=== PATIENT | female | born 1995 | race Caucasian/White ===

== ENCOUNTER 2018-08-04 11:07 | Emergency (ER) | payer OTHER ==
[2018-08-04 11:17] VITALS: BP 119/74
--- NOTE | 2018-08-04 12:23 | ED Physician Documentation ---
PD HPI HEENT - Stated complaint Stated Complaint: SORE THROAT - Chief complaint Chief Complaint: Heent - History obtained from History obtained from: Patient - History of Present Illness Timing - onset: How many days ago (5 days ill, worse the past day or so) Timing - duration: Days Timing - details: Gradual onset, Still present (worse the past day) Location: Sinuses, Throat Associated symptoms: Congestion, Cough, Other (sore throat). No: Fever, Swollen nodes Recently seen: Not recently seen Review of Systems Constitutional: reports: Myalgias, Fatigue. denies: Fever, Chills Nose: reports: Rhinorrhea / runny nose, Congestion Throat: reports: Sore throat. denies: Swollen tonsils Respiratory: reports: Cough. 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 : None HEENT: None Psych: None Musculoskeletal: None Derm: None - Past Surgical History Past Surgical History: No - Present Medications Home Medications: Ambulatory Orders Medication Instructions Recorded Confirmed Benzonatate [Tessalon Perle] 100 - 200 mg PO TID PRN #30 capsule 08/04/18 Dexamethasone [Decadron] 4 mg PO DAILY #5 tablet 08/04/18 Naproxen 375 mg PO BID #20 tablet 08/04/18 - Allergies Allergies/Adverse Reactions: Allergies Allergy/AdvReac Type Severity Reaction Status Date / Time No Known Drug Allergies Allergy Verified 08/04/18 11:16 - Social History Does the pt smoke?: No Smoking Status: Never smoker Does the pt drink ETOH?: No Does the pt have substance abuse?: No - Immunizations Immunizations are current?: Yes - POLST Patient has POLST: No PD ED PE NORMAL - Vitals Vital signs reviewed: Yes - General General: Alert and oriented X 3, Well developed/nourished - HEENT HEENT: Ears normal, Moist mucous membranes. No: Pharynx benign (some redness and swelling of tonsils, but only moderate and no real exudate. Minimal anterior adenopathy. ) - Neck Neck: Supple, no meningeal sign - Cardiac Cardiac: RRR, No murmur - Respiratory Respiratory: Clear bilaterally - Abdomen Abdomen: Soft, Non tender - Derm Derm: Normal color, Warm and dry, No rash - Neuro Neuro: Alert and oriented X 3, No motor deficit, Normal speech Results - Vitals Vitals: Oxygen O2 Source Room air - Labs Labs: Microbiology 08/04/18 11:17 Group A Strep Throat Culture - Final Throat Beta Hemolytic Strep Group A Laboratory Tests 08/04/18 11:17 Group A Strep Rapid Negative PD MEDICAL DECISION MAKING - ED course Complexity details: reviewed results (negative strep test), considered differential, d/w patient Departure - Departure Disposition: Home, Self Care Clinical Impression: Upper respiratory infection Qualifiers: URI type: croup Qualified Code(s): J05.0 - Acute obstructive laryngitis [croup] Condition: Stable Record reviewed to determine appropriate education?: Yes Instructions: ED Upper Resp Infec No Abx Tx Follow-Up: [facility] [Provider Group] Prescriptions: Benzonatate [Tessalon Perle] 100 - 200 mg PO TID PRN #30 capsule PRN Reason: Cough Dexamethasone [Decadron] 4 mg PO DAILY #5 tablet Naproxen 375 mg PO BID #20 tablet Comments: Rest today and tomorrow. Drink lots of fluids. Naproxen twice daily for the next 7-10 days. Add Tylenol if needed for fevers or pains. Decadron steroid will help with the inflammation through the throat and airway Eve coughing and less hurting. Tessalon if needed for cough. Recheck if not improving well over the next few days. Forms: Activity restrictions Discharge Date/Time: 08/04/18 12:57
[2018-08-04] MEDS ORDERED: DEXAMETHASONE 10 MG/ML VIAL PO STA (12:37)
[2018-08-04] MEDS ORDERED: NAPROXEN 250 MG TABLET PO STA (12:37)
[2018-08-04] MEDS ORDERED: BENZONATATE 100 MG CAPSULE PO STA (12:37)
[2018-08-04] MEDS ORDERED: CHERRY SYRUP 10 ML UDC PO ONE (12:49)
== END 2018-08-04 12:57 | disposition home or self-care (01) ==
LOC: ED 11:07
DX: J05.0 Acute obstructive laryngitis [croup] (principal)
CPT/HCPCS: 87070; 87430; 99283; A9270

== ENCOUNTER 2019-03-08 07:54 | Emergency (ER) | payer OTHER ==
[2019-03-08 08:02] VITALS: BP 127/63
--- NOTE | 2019-03-08 08:18 | ED Physician Documentation ---
PD HPI NVD - Stated complaint Stated Complaint: N/V/D - Chief complaint Chief Complaint: Abd Pain - History obtained from History obtained from: Patient - History of Present Illness Timing - onset: Last night Timing - duration: Days (/) Timing - details: Abrupt onset, Still present Associated symptoms: Abdominal pain (just muscular when vomiting; no consistent pains), Loss of appetite (The patient started with nausea and vomiting last night after dinner and this continued through the night. He has tapered a little bit into this morning. She has had some diarrhea as well. She has muscular abdominal pain with vomiting but no ongoing abdominal pain. She wanted to rest at home today and went to [facility] to get a SI Q excuse but they were too busy and referred her to the ER.). No: Near syncope / syncope, Weight loss, Dysuria Contributing factors: No: Sick contact, Bad food, Recent antibiotics Improved by: No: Vomiting Worsened by: Eating Similar symptoms before: Has not had sx before Recently seen: Clinic (She went to [facility] but they were busy and said they could not see her to give her first sick excuse and referred her to the ER.) Review of Systems Constitutional: reports: Myalgias. denies: Fever, Chills Nose: denies: Rhinorrhea / runny nose, Congestion Throat: denies: Sore throat Respiratory: denies: Cough GI: reports: Nausea, Vomiting, Diarrhea. 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 HEENT: None Psych: None Musculoskeletal: None Derm: None - Past Surgical History Past Surgical History: No - Present Medications Home Medications: Ambulatory Orders Medication Instructions Recorded Confirmed Diphenoxylate/Atropine [Lomotil] 1 each PO QID PRN #12 tablet 03/08/19 Ondansetron Odt [Zofran] 4 mg TL Q6H PRN #10 tablet 03/08/19 RX: Naproxen 375 mg PO BID #20 tablet 03/08/19 - Allergies Allergies/Adverse Reactions: Allergies Allergy/AdvReac Type Severity Reaction Status Date / Time No Known Drug Allergies Allergy Verified 03/08/19 08:02 - Social History Does the pt smoke?: No Smoking Status: Never smoker Does the pt drink ETOH?: No Does the pt have substance abuse?: No - Immunizations Immunizations are current?: Yes - POLST Patient has POLST: No PD ED PE NORMAL - Vitals Vital signs reviewed: Yes - General General: Alert and oriented X 3, No acute distress, Well developed/nourished - HEENT HEENT: Pharynx benign. No: Moist mucous membranes - Neck Neck: Supple, no meningeal sign, No adenopathy - Cardiac Cardiac: RRR, No murmur - Respiratory Respiratory: Clear bilaterally - Abdomen Abdomen: Soft, Non tender, Non distended, No organomegaly. No: Normal bowel sounds (increased) - Back Back: No CVA TTP - Derm Derm: Normal color, Warm and dry - Neuro Neuro: Alert and oriented X 3, No motor deficit, Normal speech Results - Vitals Vitals: Vital Signs - 24 hr 03/08/19 08:00 Temperature 36.5 C Heart Rate 84 Respiratory 16 Rate Blood Pressure 127/63 O2 Saturation 99 Oxygen O2 Source Room air PD MEDICAL DECISION MAKING - ED course Complexity details: considered differential (Sounds likely to be a viral gastroenteritis or food poisoning. She has no abdominal tenderness. The patient does not feel dehydrated enough to warrant IVs as offered. She would prefer oral medications and being able to go home and rest. We can do that.), d/w patient Departure - Departure Disposition: 01 Home, Self Care Clinical Impression: Nausea vomiting and diarrhea Condition: Stable Record reviewed to determine appropriate education?: Yes Health Concerns: vomiting and diarrhea Plan of Treatment: medications and time Care Goals: improve symptoms Assessment: likely viral GE Instructions: ED Gastroenteritis Vs Food Poison Follow-Up: [facility] [Provider Group] Prescriptions: Diphenoxylate/Atropine [Lomotil] 1 each PO QID PRN #12 tablet PRN Reason: Diarrhea RX: Naproxen 375 mg PO BID #20 tablet Ondansetron Odt [Zofran] 4 mg TL Q6H PRN #10 tablet PRN Reason: Nausea / Vomiting Comments: Off work today. Meds for nausea and diarrhea as needed. Naproxen for pains/fevers. Forms: Activity restrictions Discharge Date/Time: 03/08/19 08:40
[2019-03-08] MEDS ORDERED: ACETAMINOPHEN 325 MG TABLET PO STA (08:23)
[2019-03-08] MEDS ORDERED: DIPHENOX/ATROPINE 2.5/0.025 MG TABLET PO STA (08:23)
[2019-03-08] MEDS ORDERED: ONDANSETRON ODT 4 MG TABLET TL STA (08:23)
== END 2019-03-08 08:40 | disposition home or self-care (01) ==
LOC: ED 07:54
DX: R11.2 Nausea with vomiting, unspecified (principal); R19.7 Diarrhea, unspecified
CPT/HCPCS: 99283; A9270; Q0162

== ENCOUNTER 2020-11-10 17:53 | Emergency (ER) | payer OTHER ==
[2020-11-10] MEDS ORDERED: METOCLOPRAMIDE 10 MG/2 ML VIAL IVP STA (18:19)
[2020-11-10] MEDS ORDERED: SODIUM CHLORIDE 0.9% 1,000 ML IV STA (18:19)
--- NOTE | 2020-11-10 18:20 | ED Physician Documentation ---
PD HPI ABD PAIN - Stated complaint Stated Complaint: VOMITING FOR 2 WEEKS - Chief complaint Chief Complaint: Abd Pain - History obtained from History obtained from: Patient (25-year-old G3, P0 at 7 weeks gestation presents with 2 weeks of worsening vomiting and nausea. Developed some left upper quadrant pain today. No pelvic pain, cramping or bleeding. 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 HEENT: None Psych: None Musculoskeletal: None Derm: None - Past Surgical History Past Surgical History: No - Present Medications Home Medications: Ambulatory Orders Medication Instructions Recorded Confirmed Diphenoxylate/Atropine [Lomotil] 1 each PO QID PRN #12 tablet 03/08/19 Naproxen 375 mg PO BID #20 tablet 03/08/19 Ondansetron Odt [Zofran] 4 mg TL Q6H PRN #10 tablet 03/08/19 Metoclopramide [Reglan] 10 mg PO Q6H PRN #20 tablet 11/10/20 - Allergies Allergies/Adverse Reactions: Allergies Allergy/AdvReac Type Severity Reaction Status Date / Time No Known Drug Allergies Allergy Verified 03/08/19 08:02 - Social History Does the pt smoke?: No Smoking Status: Never smoker Does the pt drink ETOH?: No Does the pt have substance abuse?: No - Immunizations Immunizations are current?: Yes - POLST Patient has POLST: No PD ED PE NORMAL - Vitals Vital signs reviewed: Yes - General General: Alert and oriented X 3, No acute distress - HEENT HEENT: PERRL, EOMI - Neck Neck: Supple, no meningeal sign, No bony TTP - Cardiac Cardiac: RRR, No murmur - Respiratory Respiratory: No respiratory distress, Clear bilaterally - Abdomen Abdomen: Normal bowel sounds, Soft, Non tender, Other (Bedside ultrasound demonstrates single live intrauterine with heart rate of 146.) - Back Back: No CVA TTP, No spinal TTP - Derm Derm: Normal color, Warm and dry - Extremities Extremities: No edema, No calf tenderness / cord - Neuro Neuro: Alert and oriented X 3, Normal speech Results - Vitals Vitals: Vital Signs - 24 hr 11/10/20 18:00 Temperature 37 C Heart Rate 85 Respiratory 16 Rate Blood Pressure 125/66 O2 Saturation 100 Oxygen O2 Source Room air - Labs Labs: Laboratory Tests 11/10/20 11/10/20 11/10/20 18:21 18:21 18:21 WBC 9.8 RBC 4.47 Hgb 13.7 Hct 40.0 MCV 89.5 MCH 30.6 MCHC 34.3 RDW 12.2 Plt Count 285 MPV 10.1 Neut # (Auto) 6.6 Lymph # (Auto) 2.5 [place] # (Auto) 0.6 Eos # (Auto) 0.1 Baso # (Auto) 0.0 Absolute Nucleated RBC 0.00 Nucleated RBC % 0.0 Sodium 133 L Potassium 3.9 Chloride 101 Carbon Dioxide 23 Anion Gap 9.0 BUN 11 Creatinine 0.6 Estimated GFR (MDRD) 123 Glucose 91 Calcium 9.3 Total Bilirubin 0.7 AST 14 ALT 14 Alkaline Phosphatase 40 L Total Protein 7.2 Albumin 4.3 Globulin 2.9 Albumin/Globulin Ratio 1.5 Lipase 28 Urine Color YELLOW Urine Clarity CLEAR Urine pH 6.5 Ur Specific [place] 1.015 Urine Protein NEGATIVE Urine Glucose (UA) NEGATIVE Urine Ketones NEGATIVE Urine Occult Blood TRACE-INTA Urine Nitrite NEGATIVE Urine Bilirubin NEGATIVE Urine Urobilinogen 0.2 (NORMAL) Ur Leukocyte Esterase NEGATIVE Ur Microscopic Review NOT INDICATED Urine Culture Comments NOT INDICATED PD MEDICAL DECISION MAKING - ED course ED course: 25-year-old woman presents with hyperemesis gravidarum. She has some left upper quadrant pain which I suspect is from retching given benign exam. No pelvic pain, bleeding, fluid loss. Reassuring bedside ultrasound. After the administration of IV fluids and Reglan she was symptom-free. Departure - Departure Disposition: 01 Home, Self Care Clinical Impression: Hyperemesis gravidarum, Dehydration Condition: Good Record reviewed to determine appropriate education?: Yes Instructions: ED Preg Morning Sickness Prescriptions: Metoclopramide [Reglan] 10 mg PO Q6H PRN #20 tablet PRN Reason: nausea or headache Comments: Call your doctor to arrange a follow-up appointment, make the next available appointment. In the interim, return anytime if worse or if new symptoms develop.
[2020-11-10 18:27] LABS: BASOPHILS % (AUTO) 0.3 %; EOSINOPHILS # (AUTO) 0.1 10^3/uL (0.0-0.7); HGB - HEMOGLOBIN 13.7 g/dL (12.0-16.0); LYMPHOCYTES # (AUTO) 2.5 10^3/uL (1.5-3.5); LYMPHOCYTES % (AUTO) 25.3 %; MEAN CORPUSCULAR HEMOGLOBIN 30.6 pg (27.0-31.0); MEAN CORPUSCULAR HGB CONC 34.3 g/dL (32.0-36.0); MEAN CORPUSCULAR VOLUME 89.5 fL (81.0-99.0); MEAN PLATELET VOLUME 10.1 fL (7.9-10.8); MONOCYTES # (AUTO) 0.6 10^3/uL (0.0-1.0); NEUTROPHILS # (AUTO) 6.6 10^3/uL (1.5-6.6); PLT - PLATELET COUNT 285 10^3/uL (130-450); RED BLOOD COUNT 4.47 10^6/uL (4.20-5.40); RED CELL DISTRIBUTION WIDTH 12.2 % (12.0-15.0); WHITE BLOOD COUNT 9.8 x10^3/uL (4.8-10.8)
[2020-11-10 18:31] LABS: BILIRUBIN,URINE NEGATIVE (NEGATIVE); GLUCOSE, URINE (UA) NEGATIVE (NEGATIVE); KETONES,URINE (UA) NEGATIVE (NEGATIVE); LEUKOCYTE ESTERASE, URINE NEGATIVE (NEGATIVE); NITRITE,URINE NEGATIVE (NEGATIVE); OCCULT BLOOD,URINE TRACE-INTA (NEGATIVE); PH,URINE 6.5 PH (5.0-7.5); PROTEIN,URINE NEGATIVE (NEGATIVE); UROBILINOGEN,URINE 0.2 (NORMAL) E.U./dL (NORMAL)
[2020-11-10 18:32] LABS: CLARITY,URINE CLEAR (CLEAR)
[2020-11-10 18:38] LABS: ALBUMIN 4.3 g/dL (3.2-5.5); ALBUMIN/GLOBULIN RATIO 1.5 (1.0-2.2); BILIRUBIN,TOTAL 0.7 mg/dL (0.2-1.0); CALCIUM 9.3 mg/dL (8.5-10.3); CREATININE 0.6 mg/dL (0.4-1.0); POTASSIUM 3.9 mmol/L (3.5-5.0); TOTAL PROTEIN 7.2 g/dL (6.7-8.2)
[2020-11-10] MEDS ORDERED: METOCLOPRAMIDE 10 MG TABLET PO STA (19:31)
[2020-11-10 19:53] VITALS: BP 110/66
== END 2020-11-10 19:54 | disposition home or self-care (01) ==
LOC: ED 17:53
DX: O21.1 Hyperemesis gravidarum with metabolic disturbance (principal); Z3A.01 Less than 8 weeks gestation of pregnancy
CPT/HCPCS: 36415; 80053; 81003; 83690; 85025; 96374; 99283; 99284; A9270; J2765; 81001; 81025; 87086

== ENCOUNTER 2020-11-21 21:00 | Emergency (ER) | payer OTHER ==
[2020-11-21] MEDS ORDERED: SODIUM CHLORIDE 0.9% 1,000 ML IV STA ×2 (21:19→21:30)
[2020-11-21] MEDS ORDERED: ONDANSETRON 4 MG/2 ML VIAL IVP STA (21:29)
--- NOTE | 2020-11-21 21:33 | ED Physician Documentation ---
History of Present Illness - Stated complaint Stated Complaint: NAUSEA - Chief complaint Chief Complaint: Abd Pain - Additonal information Additional information: 25-year-old female presents the emergency department for uncontrolled nausea and vomiting in first trimester of . LMP 09/12/2020. G3, PO Patient is scheduled to see the OB clinic tomorrow to establish care. Patient reports that she has lost both of her previous 2 preg nancies secondary to hyperemesis gravidarum. She reports that with each of her pregnancies she has had severe nausea and vomiting. She was seen for similar 11/10/20 by my colleague. Screening labs were obtained. Symptom control was achieved in the emergency department with Reglan and she was given a prescription on discharge. She reports that the Reglan did not help with the nausea at home and she did follow-up with the [facility] where they prescribed Zofran ODT. She had been doing okay on Zofran until this evening when the vomiting began again. She is concerned because she is vomited up bright red blood and coffee-ground. She denies vaginal bleeding or discharge but does report that her urine smells bad. Review of Systems Constitutional: denies: Fever Eyes: reports: Reviewed and negative Ears: reports: Reviewed and negative Nose: reports: Reviewed and negative Throat: reports: Reviewed and negative Cardiac: reports: Reviewed and negative Respiratory: denies: Dyspnea, Cough GI: reports: Nausea, Vomiting. denies: Constipation, Diarrhea, Hematemesis : reports: LMP (09/12/20). 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 HEENT: None Psych: None Musculoskeletal: None Derm: None - Past Surgical History Past Surgical History: No - Present Medications Home Medications: Ambulatory Orders Medication Instructions Recorded Confirmed Ondansetron Odt [Zofran] 4 mg TL Q6H PRN #10 tablet 03/08/19 11/21/20 - Allergies Allergies/Adverse Reactions: Allergies Allergy/AdvReac Type Severity Reaction Status Date / Time Penicillins Allergy Anaphylaxis Verified 11/21/20 21:12 - Social History Does the pt smoke?: No Smoking Status: Never smoker Does the pt drink ETOH?: No Does the pt have substance abuse?: No - Immunizations Immunizations are current?: Yes - POLST Patient has POLST: No PD ED PE EXPANDED - General General: Alert, In distress (nauseated and actively vomiting) - HEENT HEENT: Atraumatic, PERRL, Dry mucous membranes - Neck Neck: Supple w/out meningeal sx. No: Adenopathy - Cardiac Cardiac: Regular Rate, Regular Rhythm, Radial strong equal, Cap refill < 2 sec. No: Murmur Present - Respiratory Respiratory: Clear to ausultation erlinda. No: Distress, Labored - Abdomen Abdomen: Normal Bowel sounds. No: Tender to palpation (Generalized nonfocal tenderness.) - Derm Derm: Normal color, Warm and dry - Neuro Neuro: Alert and Oriented X 3, CNII-XII intact - GCS Eye Opening: Spontaneous Motor: Obeys Commands Verbal: Oriented Total: 15 Results - Vitals Vitals: Vital Signs - 24 hr 11/21/20 11/21/20 21:09 21:12 Temperature 37.3 C 37.3 C Heart Rate 89 89 Respiratory 16 16 Rate Blood Pressure 124/59 L 124/60 O2 Saturation 100 100 Oxygen O2 Source Room air - Labs Labs: Laboratory Tests 11/21/20 11/21/20 21:38 22:00 WBC 9.9 RBC 4.16 L Hgb 12.9 Hct 37.7 MCV 90.6 MCH 31.0 MCHC 34.2 RDW 12.3 Plt Count 261 MPV 10.3 Neut # (Auto) 7.3 H Lymph # (Auto) 1.9 [place] # (Auto) 0.5 Eos # (Auto) 0.1 Baso # (Auto) 0.0 Absolute Nucleated RBC 0.00 Nucleated RBC % 0.0 Urine Color YELLOW Urine Clarity CLEAR Urine pH 8.5 H Ur Specific [place] 1.020 Urine Protein NEGATIVE Urine Glucose (UA) NEGATIVE Urine Ketones NEGATIVE Urine Occult Blood NEGATIVE Urine Nitrite NEGATIVE Urine Bilirubin NEGATIVE Urine Urobilinogen 0.2 (NORMAL) Ur Leukocyte Esterase NEGATIVE Ur Microscopic Review NOT INDICATED Urine Culture Comments NOT INDICATED PD MEDICAL DECISION MAKING - ED course Complexity details: reviewed results, re-evaluated patient, d/w patient ED course: 25-year-old female presents the emergency department with uncontrolled nausea and vomiting in first trimester . She has been taking Reglan and Zofran at home without relief of symptoms. Her nausea is especially bad when standing or ambulating at all. Screening labs are pending for this patient but I have initiated treatment with 2 L of crystalloid as well as Zofran and Reglan. Patient reports that the initial dose of Zofran has helped her symptoms but she has a lot of throat pain from retching forcefully. I will order viscous lidocaine. Patient will be signed out to my nocturnal colleague Dr. Patel to follow-up on screening labs and electrolytes and reevaluate symptoms. Departure - Departure Clinical Impression: Hyperemesis gravidarum
[2020-11-21 22:06] LABS: BILIRUBIN,URINE NEGATIVE (NEGATIVE); GLUCOSE, URINE (UA) NEGATIVE (NEGATIVE); KETONES,URINE (UA) NEGATIVE (NEGATIVE); LEUKOCYTE ESTERASE, URINE NEGATIVE (NEGATIVE); NITRITE,URINE NEGATIVE (NEGATIVE); OCCULT BLOOD,URINE NEGATIVE (NEGATIVE); PH,URINE 8.5 PH (5.0-7.5); PROTEIN,URINE NEGATIVE (NEGATIVE); UROBILINOGEN,URINE 0.2 (NORMAL) E.U./dL (NORMAL)
[2020-11-21 22:07] LABS: CLARITY,URINE CLEAR (CLEAR)
[2020-11-21 22:18] LABS: BASOPHILS % (AUTO) 0.3 %; EOSINOPHILS # (AUTO) 0.1 10^3/uL (0.0-0.7); EOSINOPHILS % (AUTO) 0.8 %; HCT - HEMATOCRIT 37.7 % (37.0-47.0); HGB - HEMOGLOBIN 12.9 g/dL (12.0-16.0); LYMPHOCYTES # (AUTO) 1.9 10^3/uL (1.5-3.5); LYMPHOCYTES % (AUTO) 18.8 %; MEAN CORPUSCULAR HGB CONC 34.2 g/dL (32.0-36.0); MEAN CORPUSCULAR VOLUME 90.6 fL (81.0-99.0); MEAN PLATELET VOLUME 10.3 fL (7.9-10.8); MONOCYTES # (AUTO) 0.5 10^3/uL (0.0-1.0); MONOCYTES % (AUTO) 5.5 %; NEUTROPHILS # (AUTO) 7.3 10^3/uL (1.5-6.6); NEUTROPHILS % (AUTO) 74.3 %; PLT - PLATELET COUNT 261 10^3/uL (130-450); RED BLOOD COUNT 4.16 10^6/uL (4.20-5.40); RED CELL DISTRIBUTION WIDTH 12.3 % (12.0-15.0); WHITE BLOOD COUNT 9.9 x10^3/uL (4.8-10.8)
[2020-11-21] MEDS ORDERED: LIDOCAINE VISCOUS 2% 15 ML UDC MM STA (22:18)
[2020-11-21] MEDS ORDERED: METOCLOPRAMIDE 10 MG/2 ML VIAL IVP STA (22:23)
[2020-11-21 22:32] LABS: ALBUMIN 3.7 g/dL (3.2-5.5); ALBUMIN/GLOBULIN RATIO 1.5 (1.0-2.2); BILIRUBIN,TOTAL 0.5 mg/dL (0.2-1.0); CALCIUM 8.8 mg/dL (8.5-10.3); CREATININE 0.6 mg/dL (0.4-1.0); POTASSIUM 3.8 mmol/L (3.5-5.0); TOTAL PROTEIN 6.2 g/dL (6.7-8.2)
[2020-11-22 00:05] VITALS: BP 110/60
== END 2020-11-22 00:05 | disposition home or self-care (01) ==
LOC: ED 21:00
DX: O21.0 Mild hyperemesis gravidarum (principal); Z3A.00 Weeks of gestation of pregnancy not specified
CPT/HCPCS: 80053; 81003; 83690; 85025; 96361; 96374; 96375; 99283; J2765; 81001; 87086

== ENCOUNTER 2020-11-22 08:00 | Outpatient (CLI) | payer OTHER ==
[2020-11-22 18:41] LABS: MUDS CUTOFF CONCENTRATIONS CUTOFF CONC BELOW:
[2020-11-22 18:56] LABS: BILIRUBIN,URINE NEGATIVE (NEGATIVE); GLUCOSE, URINE (UA) NEGATIVE (NEGATIVE); KETONES,URINE (UA) NEGATIVE (NEGATIVE); LEUKOCYTE ESTERASE, URINE NEGATIVE (NEGATIVE); NITRITE,URINE NEGATIVE (NEGATIVE); OCCULT BLOOD,URINE NEGATIVE (NEGATIVE); PH,URINE 7.5 PH (5.0-7.5); PROTEIN,URINE NEGATIVE (NEGATIVE); UROBILINOGEN,URINE 0.2 (NORMAL) E.U./dL (NORMAL)
[2020-11-22 19:00] LABS: CLARITY,URINE CLEAR (CLEAR)
[2020-11-22 19:10] LABS: AMPHETAMINE SCREEN,URINE NEGATIVE (NEGATIVE); BARBITURATE SCREEN,UR NEGATIVE (NEGATIVE); BENZODIAZEPINES SCREEN, URINE NEGATIVE (NEGATIVE); COCAINE SCREEN URINE NEGATIVE (NEGATIVE); METHADONE SCREEN, URINE NEGATIVE (NEGATIVE); METHAMPHETAMINES SCREEN, URINE NEGATIVE (NEGATIVE); OPIATE SCREEN, URINE NEGATIVE (NEGATIVE); OXYCODONE SCREEN, URINE NEGATIVE (NEGATIVE); PROPOXYPHENE SCREEN, URINE NEGATIVE (NEGATIVE); THC CANNABINOID SCREEN, URINE NEGATIVE (NEGATIVE); TRICYCLIC ANTIDEPRESSANT,URINE NEGATIVE (NEGATIVE)
[2020-11-22 19:16] LABS: WBC,URINE 0-3 /HPF (0-5)
[2020-11-22 19:17] LABS: BACTERIA,URINE Rare /HPF (None Seen); RBC,URINE None Seen /HPF (0-5); SQUAMOUS EPITHELIAL CELL,UR FEW Squamous (<= Few)
[2020-11-22 21:29] LABS: BACTERIAL VAGINOSIS DNA POSITIVE (NEGATIVE); CANDIDA GLABRATA DNA NEGATIVE (NEGATIVE); CANDIDA GROUP DNA NEGATIVE (NEGATIVE); CANDIDA KRUSEI DNA NEGATIVE (NEGATIVE); TRICHOMONAS VAGINALIS DNA NEGATIVE (NEGATIVE)
== END 2020-11-22 23:59 | disposition home or self-care (01) ==
LOC: LAB.R 08:00
PROVIDERS: ATTEND Advanced Practice Midwife
DX: Z32.01 Encounter for pregnancy test, result positive (principal); N89.8 Other specified noninflammatory disorders of vagina
CPT/HCPCS: 80306; 81001; 87086; 87661; 87801

== ENCOUNTER 2020-11-25 13:05 | Outpatient (CLI) | payer OTHER ==
--- NOTE | 2020-11-25 14:02 | Ultrasound Report ---
PROCEDURE: OB First Trimester INDICATIONS: POS TEST OUTSIDE/PRIOR DATING DATA: Last menstrual period (LMP): 09/12/2020. LMP-based estimated date of delivery (ASH): 06/19/2021. First dating scan (date and location): 01/25/2021. Estimated date of delivery (ASH) from first dating scan: 06/23/2021. TECHNIQUE: Real-time scanning was performed of the fetus and maternal pelvic organs, with image documentation. COMPARISON: None FINDINGS: Embryo: Signal of intrauterine is identified with crown-rump length measuring 2.1 cm corre sponding to 10 weeks 0 days. heart rate is identified at 169 bpm. Measurement variability in dating: +/- 4 weeks by LMP, +/- 7 days by mean sac diameter (use before 6 weeks gestation if crown-rump length not able to be measured), +/- 5 days by crown-rump length (6-12 weeks gestation). Maternal organs: Ovaries are within normal limits.. IMPRESSION: Single live intrauterine with ultrasound gestational age of 10 weeks 0 days. Reviewed by: Eulalia Foy MD on 11/25/2020 2:01 PM PDT Approved by: Eulalia Foy MD on 11/25/2020 2:01 PM PDT Station ID: [id number]
== END 2020-11-25 13:06 | disposition home or self-care (01) ==
LOC: DI 13:05
PROVIDERS: ATTEND Advanced Practice Midwife
DX: Z32.01 Encounter for pregnancy test, result positive (principal)

== ENCOUNTER 2020-12-18 10:41 | Outpatient (CLI) | payer OTHER ==
[2020-12-18 21:09] LABS: CHLAMYDIA TRACHOMATIS DNA NEGATIVE (NEGATIVE); NEISSERIA GONORRHOEAE DNA NEGATIVE (NEGATIVE); TRICHOMONAS VAGINALIS DNA NEGATIVE (NEGATIVE)
== END 2020-12-18 23:59 | disposition home or self-care (01) ==
LOC: LAB.R 10:41
PROVIDERS: ATTEND Advanced Practice Midwife
DX: Z34.90 Encounter for supervision of normal pregnancy, unspecified, unspecified trimester (principal)
CPT/HCPCS: 87491; 87591; 87661

== ENCOUNTER 2021-01-15 13:36 | Outpatient (CLI) | payer OTHER ==
[2021-01-15 14:09] LABS: BASOPHILS % (AUTO) 0.2 %; EOSINOPHILS % (AUTO) 0.5 %; HCT - HEMATOCRIT 37.6 % (37.0-47.0); LYMPHOCYTES # (AUTO) 1.9 10^3/uL (1.5-3.5); LYMPHOCYTES % (AUTO) 22.8 %; MEAN CORPUSCULAR HEMOGLOBIN 31.1 pg (27.0-31.0); MEAN CORPUSCULAR HGB CONC 34.6 g/dL (32.0-36.0); MONOCYTES # (AUTO) 0.4 10^3/uL (0.0-1.0); MONOCYTES % (AUTO) 4.9 %; NEUTROPHILS # (AUTO) 5.8 10^3/uL (1.5-6.6); NEUTROPHILS % (AUTO) 71.4 %; PLT - PLATELET COUNT 296 10^3/uL (130-450); RED BLOOD COUNT 4.18 10^6/uL (4.20-5.40); RED CELL DISTRIBUTION WIDTH 13.4 % (12.0-15.0); WHITE BLOOD COUNT 8.2 x10^3/uL (4.8-10.8)
[2021-01-16 12:50] LABS: HEPATITIS B SURFACE ANTIGEN NON-REACTIVE (NON-REACTIVE); HEPATITIS C ANTIBODY NON-REACTIVE (NON-REACTIVE)
[2021-01-16 15:16] LABS: HIV AG/AB 4TH GEN NON-REACTIVE (NON-REACTIVE)
[2021-01-17 03:46] LABS: AFP MOM 0.97; AGE RISK DOWN SYNDROME 1 IN 1047; CALC'D GESTATIONAL AGE 17.9 weeks; CIGARETTE SMOKER? NOT GIVEN; DONOR AGE: EGG RETRIEVAL NOT GIVEN; DONOR EGG NO; ESTRIOL MOM 0.69; HX OF NEURAL TUBE DEFECTS NO; INHIBIN A MOM 0.88; INSULIN DEPEND DIABETIC NO; MATERNAL WEIGHT 170 lbs; MSS DOWN SYNDROME RISK <1 IN 5000; MSS3 TRISOMY 18 RISK <1 IN 5000; NUMBER OF FETUSES 1; PREV PREGNANCY DOWN SYND NO; RISK FOR ONTD <1 IN 5000
== END 2021-01-15 13:37 | disposition home or self-care (01) ==
LOC: LAB 13:36
PROVIDERS: ATTEND Radiology Diagnostic Radiology
DX: Z34.90 Encounter for supervision of normal pregnancy, unspecified, unspecified trimester (principal); Z36.89 Encounter for other specified antenatal screening; Z36.0 Encounter for antenatal screening for chromosomal anomalies
CPT/HCPCS: 36415; 81511; 85025; 86592; 86762; 86787; 86803; 86850; 86900; 86901; 87340; 87389; 87491; 87591; 87661

== ENCOUNTER 2021-01-31 15:37 | Outpatient (CLI) | payer OTHER ==
--- NOTE | 2021-01-31 23:14 | Ultrasound Report ---
PROCEDURE: OB Detailed Eval INDICATIONS: SUPERVISION OF NORMAL OUTSIDE/PRIOR DATING DATA: Last menstrual period (LMP): 09/12/2020. LMP-based estimated date of delivery (ASH): 06/19/2021. First dating scan (date and location): 11/25/2020. [facility]. Estimated date of delivery (ASH) from first dating scan: 06/23/2021. The below data below was generated using the ultrasound ASH of 06/23/2021 TECHNIQUE: Real-time scanning was performed of the fetus, with image documentation and biometric measurements. COMPARISON: 11/25/2020. FINDINGS: General: A single living intrauterine gestation is present. Presentation: Vertex Placenta: Placental position is posterior, without previa. Amniotic fluid index: 14.2 cm, normal for gestational age. Largest pocket 4.2 cm. heart rate: 137 beats per minute. Maternal cervical canal: 3.2 cm long; normal length is 2.5 cm or more. biometrics: Biparietal diameter: 4.6 cm, 19 weeks 6 days Head circumference: 16.6 cm, 19 weeks 2 days Abdominal circumference: 14.5 cm, 19 weeks 6 days Femur length: 2.8 cm, 18 weeks 4 days Estimated gestational age from initial scan: 19 weeks 4 days. Composite gestational age from present scan: 19 weeks 3 days Estimated weight and percentile: 282 g, 27th percentile Measurement variability in biometric dating: +/- 10 days from 12-20 weeks gestation, +/- 2 weeks from 20-30 weeks gestation, +/- 3 weeks at 30 weeks gestation or later. Anatomic survey: Neuro: Ventricles are normal at less than 10 mm. Cisterna magna is normal at 3-11 mm. Cerebellum i s normal in size and morphology. Nuchal skin fold: Normal at less than 6 mm between 14 and 20 weeks gestational age. Face: Nose and lips, facial profile are normal. Spine: No evidence for spina bifida. Heart: 4-chambered heart is present, with normal ventricular outflow tracts. Diaphragm: Diaphragm is intact. Stomach: Left-sided stomach is present. Kidneys: No hydronephrosis. Normal is less than 5 mm in 2nd trimester, less than 7 mm in 3rd trimester. Cord: 3 vessel cord has orthotopic insertion. Bladder: Normal in size. Extremities: All 4 extremities are visualized. IMPRESSION: 1. Tomas living intrauterine at 19 weeks 3 days based on today's ultrasound. This is co ncordant with the first trimester ultrasound. Fetus is in the 27th percentile for weight. 2. Normal placenta and amniotic fluid. 3. Normal and complete anatomic survey. Reviewed by: Dwaine Pacheco MD on 01/31/2021 11:12 PM PDT Approved by: Dwaine Pacheco MD on 01/31/2021 11:12 PM PDT Station ID: [id number]
== END 2021-01-31 15:38 | disposition home or self-care (01) ==
LOC: DI 15:37
PROVIDERS: ATTEND Nurse Practitioner Obstetrics & Gynecology
DX: Z34.00 Encounter for supervision of normal first pregnancy, unspecified trimester (principal); Z36.0 Encounter for antenatal screening for chromosomal anomalies

== ENCOUNTER 2021-02-07 11:44 | Outpatient (CLI) | payer OTHER ==
[2021-02-07] MEDS ORDERED: LACTATED RINGERS 1,000 ML IV ONE (11:54)
[2021-02-07 11:59] VITALS: BP 105/69
[2021-02-07] MEDS: ONDANSETRON 4 MG/2 ML VIAL IVP PRN ×2 (12:40→15:50)
[2021-02-07 13:23] LABS: BASOPHILS % (AUTO) 0.2 %; EOSINOPHILS % (AUTO) 0.4 %; HGB - HEMOGLOBIN 11.6 g/dL (12.0-16.0); LYMPHOCYTES # (AUTO) 1.3 10^3/uL (1.5-3.5); LYMPHOCYTES % (AUTO) 15.5 %; MEAN CORPUSCULAR HEMOGLOBIN 32.6 pg (27.0-31.0); MEAN CORPUSCULAR HGB CONC 35.2 g/dL (32.0-36.0); MEAN CORPUSCULAR VOLUME 92.7 fL (81.0-99.0); MEAN PLATELET VOLUME 10.6 fL (7.9-10.8); MONOCYTES # (AUTO) 0.4 10^3/uL (0.0-1.0); MONOCYTES % (AUTO) 4.7 %; NEUTROPHILS # (AUTO) 6.5 10^3/uL (1.5-6.6); PLT - PLATELET COUNT 233 10^3/uL (130-450); RED BLOOD COUNT 3.56 10^6/uL (4.20-5.40); RED CELL DISTRIBUTION WIDTH 13.3 % (12.0-15.0); WHITE BLOOD COUNT 8.2 x10^3/uL (4.8-10.8)
[2021-02-07 13:39] LABS: ALBUMIN 3.3 g/dL (3.2-5.5); ALBUMIN/GLOBULIN RATIO 1.1 (1.0-2.2); BILIRUBIN,TOTAL 0.5 mg/dL (0.2-1.0); CALCIUM 8.6 mg/dL (8.5-10.3); CREATININE 0.6 mg/dL (0.4-1.0); POTASSIUM 3.8 mmol/L (3.5-5.0); TOTAL PROTEIN 6.2 g/dL (6.7-8.2)
[2021-02-07] MEDS: BENZOCAINE/MENTHOL LOZENGE MM PRN ×2 (13:52→15:53)
[2021-02-07 13:56] LABS: FERRITIN 19.5 ng/mL (11.0-306.8)
--- NOTE | 2021-02-07 13:57 | PROVIDER PROGRESS NOTE ---
- HPI Chief Complaint: GI symptoms Current : Current EDU 06/19/21 Gestation 21 Weeks and 1 Days 3 Para 0 Vital Signs Temperature 36.2 C L 02/07/21 11:57 Heart Rate 75 02/07/21 11:57 Respiratory Rate 18 02/07/21 11:57 Blood Pressure 105/69 02/07/21 11:57 O2 Saturation 100 02/07/21 11:57 Temperature 36.2 C L 02/07/21 11:57 Heart Rate 75 02/07/21 11:57 Respiratory Rate 18 02/07/21 11:57 Blood Pressure 105/69 02/07/21 11:57 O2 Saturation 100 02/07/21 11:57 - Plan Plan: Pt evaluated [id number] S: [place] presents today with her secondary to persistent vomiting in and this morning has progressed to vomiting blood. She states her throat is very sore. This happened in the first trimester on two occasions and she was seen in the ED secondarily. She was hydrated and given IV anti-nausea medications and states it did make her feel significantly better. She has been hesitant to present for evaluation and management secondary to her fear of needles. She reports she has not been able to eat anything for the past 36 hours. She was able to drink water yesterday. She states she does feel dehydrated but not has bad as she has felt in the past. She states overall she feels her horrible days are fewer and further between than they were in the past. She has now been 3 weeks without a terrible day like she is having today. Able to consistently drink smoothies and water. Things that have sounded good to her in the past no longer sound good and she cannot think about eating without vomiting. O: FHR via doppler WNL VS WNL 1 liter of LR infused over 2 hours. 4mg IV zofran administered - pt feels significantly improved. CBC, CMP, nutrition lab panel ordered - all WNL. A: 25yo @ 21.1wks gestation Hyperemesis gravidarum- pt improved significantly following fluid and zofran administration. P: Reviewed precautions and when to present. Discussed PICC line placement if persistently presenting for IVs however pt does feel the frequency of her "bad days" is improving. Reviewed BRAT diet and encouraged regular use of zofran. Reassured by normal nutrition labs and electrolytes. Pt verbalized understanding and agrees to above plan. She denies further questions or concerns at this time. FINAL ASSESSMENT: Hyperemesis gravidarum
[2021-02-07 14:00] LABS: FOLATE 13.63 ng/mL (5.90 - >24.8)
== END 2021-02-07 15:55 | disposition home or self-care (01) ==
LOC: WFO 11:44 → FBP 11:46 → WFO 15:55
PROVIDERS: ATTEND Nurse Practitioner Obstetrics & Gynecology
DX: O21.0 Mild hyperemesis gravidarum (principal); Z3A.21 21 weeks gestation of pregnancy
CPT/HCPCS: 36415; 80053; 82306; 82607; 82728; 82746; 83540; 84466; 85025; 96374; 96376; 99215; A9270; J7120; 99213

== ENCOUNTER 2021-03-06 17:45 | Outpatient (CLI) | payer OTHER ==
[2021-03-06] MEDS ORDERED: METOCLOPRAMIDE 10 MG/2 ML VIAL IVP PRN (18:06)
[2021-03-06] MEDS ORDERED: LACTATED RINGERS 1,000 ML IV ONE (18:11)
[2021-03-06 18:34] LABS: BASOPHILS % (AUTO) 0.3 %; EOSINOPHILS # (AUTO) 0.1 10^3/uL (0.0-0.7); EOSINOPHILS % (AUTO) 0.4 %; HCT - HEMATOCRIT 37.3 % (37.0-47.0); HGB - HEMOGLOBIN 12.8 g/dL (12.0-16.0); LYMPHOCYTES # (AUTO) 2.4 10^3/uL (1.5-3.5); LYMPHOCYTES % (AUTO) 20.8 %; MEAN CORPUSCULAR HEMOGLOBIN 31.9 pg (27.0-31.0); MEAN CORPUSCULAR HGB CONC 34.3 g/dL (32.0-36.0); MEAN PLATELET VOLUME 10.4 fL (7.9-10.8); MONOCYTES # (AUTO) 0.8 10^3/uL (0.0-1.0); MONOCYTES % (AUTO) 6.7 %; NEUTROPHILS # (AUTO) 8.2 10^3/uL (1.5-6.6); NEUTROPHILS % (AUTO) 71.4 %; PLT - PLATELET COUNT 304 10^3/uL (130-450); RED BLOOD COUNT 4.01 10^6/uL (4.20-5.40); RED CELL DISTRIBUTION WIDTH 12.5 % (12.0-15.0); WHITE BLOOD COUNT 11.5 x10^3/uL (4.8-10.8)
[2021-03-06 18:52] LABS: ALBUMIN 3.5 g/dL (3.2-5.5); BILIRUBIN,TOTAL 0.8 mg/dL (0.2-1.0); CALCIUM 8.6 mg/dL (8.5-10.3); CREATININE 0.6 mg/dL (0.4-1.0); POTASSIUM 4.1 mmol/L (3.5-5.0)
[2021-03-06] MEDS ORDERED: hydrOXYzine PAMOATE 25 MG CAPSULE PO STA (19:05)
[2021-03-06 20:40] VITALS: BP 119/64
[2021-03-06 20:43] LABS: BILIRUBIN,URINE NEGATIVE (NEGATIVE); CLARITY,URINE CLEAR (CLEAR); GLUCOSE, URINE (UA) NEGATIVE (NEGATIVE); KETONES,URINE (UA) NEGATIVE (NEGATIVE); LEUKOCYTE ESTERASE, URINE NEGATIVE (NEGATIVE); NITRITE,URINE NEGATIVE (NEGATIVE); OCCULT BLOOD,URINE NEGATIVE (NEGATIVE); PH,URINE 7.5 PH (5.0-7.5); PROTEIN,URINE NEGATIVE (NEGATIVE); UROBILINOGEN,URINE 0.2 (NORMAL) E.U./dL (NORMAL)
--- NOTE | 2021-03-07 10:21 | PROVIDER PROGRESS NOTE ---
- HPI Chief Complaint: Decreased movement Current : Current EDU 06/19/21 Gestation 25 Weeks and 0 Days 3 Para 0 Vital Signs Temperature 36.9 C 03/06/21 17:50 Heart Rate 83 03/06/21 17:50 Respiratory Rate 17 03/06/21 17:50 Blood Pressure 107/64 03/06/21 17:50 O2 Saturation 98 03/06/21 17:50 Temperature 37.2 C 03/06/21 20:35 Heart Rate 76 03/06/21 20:35 Respiratory Rate 18 03/06/21 20:35 Blood Pressure 119/64 03/06/21 20:35 O2 Saturation 99 03/06/21 20:35 - Plan Plan: Ky presented to L&D triage in a distressed state. Reporting overheating, lethargy, nausea with vomiting being unable to keep any food in her system for over 24 hours. She denies ctx, LOF or VB, however she reports a decrease in movement today. O: Pt verbal and oriented x3 Skin color and turgor wnl Warm to touch Abdomen: gravid, soft, nontender No emesis noted during time at patient bedside monitoring difficult r/t maternal movement and age Baseline wnl, variability noted IV started and 1L LR given CMP- wnl CBC- wnl UA- wnl IV antiemetics ordered and effective A: 26yo at 25.0 wks gestation who presents with persistent nausea/vomiting and decreased movement IV rehydration indicated LABS reassuring P: Discharge to home with regular care Adjusted antiemetic medications sent to preferred pharmacy. 30 mins spent face to face with this patient
== END 2021-03-06 21:45 | disposition home or self-care (01) ==
LOC: FBP 17:45 → WFO 17:45
PROVIDERS: ATTEND Advanced Practice Midwife
DX: O36.8120 Decreased fetal movements, second trimester, not applicable or unspecified (principal); O21.2 Late vomiting of pregnancy; Z3A.25 25 weeks gestation of pregnancy
CPT/HCPCS: 36415; 80053; 81003; 85025; 96361; 96374; 99215; A9270; J2765; J7120; 81001; 87086; 99214

== ENCOUNTER 2021-04-14 08:00 | Outpatient (CLI) | payer OTHER ==
[2021-04-14 10:03] LABS: HCT - HEMATOCRIT 36.1 % (37.0-47.0); HGB - HEMOGLOBIN 12.3 g/dL (12.0-16.0); MEAN CORPUSCULAR HEMOGLOBIN 31.6 pg (27.0-31.0); MEAN CORPUSCULAR HGB CONC 34.1 g/dL (32.0-36.0); MEAN CORPUSCULAR VOLUME 92.8 fL (81.0-99.0); MEAN PLATELET VOLUME 10.5 fL (7.9-10.8); RED BLOOD COUNT 3.89 10^6/uL (4.20-5.40); RED CELL DISTRIBUTION WIDTH 12.1 % (12.0-15.0); WHITE BLOOD COUNT 8.8 x10^3/uL (4.8-10.8)
[2021-04-14 12:58] LABS: ESTIMATED AVERAGE GLUCOSE 94 mg/dL (70-100); HEMOGLOBIN A1c% 4.9 % (4.27-6.07)
== END 2021-04-14 23:59 | disposition home or self-care (01) ==
LOC: LAB 08:00
PROVIDERS: ATTEND Nurse Practitioner Obstetrics & Gynecology
DX: O09.70 Supervision of high risk pregnancy due to social problems, unspecified trimester (principal); Z36.89 Encounter for other specified antenatal screening
CPT/HCPCS: 36415; 82950; 83036; 85027; 86787; 86850

== ENCOUNTER 2021-04-15 20:24 | Outpatient (CLI) | payer OTHER ==
[2021-04-15] MEDS ORDERED: LACTATED RINGERS 1,000 ML IV ONE (20:56)
[2021-04-15] MEDS ORDERED: METOCLOPRAMIDE 10 MG/2 ML VIAL IVP PRN (20:57)
[2021-04-15] MEDS ORDERED: ONDANSETRON 4 MG/2 ML VIAL IVP PRN (20:57)
[2021-04-15 22:00] VITALS: BP 101/50
--- NOTE | 2021-04-15 22:04 | PROVIDER PROGRESS NOTE ---
- HPI Chief Complaint: Hyperemesis Current : Current EDU 06/19/21 Gestation 30 Weeks and 5 Days 2 Para 0 Vital Signs Temperature 99.0 F 04/15/21 20:30 Heart Rate 76 04/15/21 20:30 Respiratory Rate 16 04/15/21 20:30 Blood Pressure 118/73 04/15/21 20:30 O2 Saturation 100 04/15/21 20:30 Temperature 99.0 F 04/15/21 20:30 Heart Rate 76 04/15/21 20:30 Respiratory Rate 16 04/15/21 20:30 Blood Pressure 118/73 04/15/21 20:30 O2 Saturation 100 04/15/21 20:30 - Procedures NST Procedure: Start: 2030 Stop: 21:58 EFM 150 mod jhonatan 10x10 accels no decels TOCO: quiet -AGA/Cat I Service Date of procedure: 04/15/21 - Plan Plan: ID: Patient is a 26 yo at 30+5 wga here with nausea. HPI: Patient has had ongoing issues with nausea and vomiting. Underwent glucola on 04/14/21 and had emesis. Notes that she continued to have nausea fter vomiting her glucola. Had one bout of emesis today accompanied with small amount of blood. [place] she would not be able to adequately hydrate herself with the bleeding. Bleeding has not been ongoing and she has not had any further nausea since arrival. received Rhogam yesterday. Take dramamine daily for nausea. Has GERD, no meds to date. PNC: LMP: 09/12/2020 ASH by LMP:06/19/2021 Initial U/S:11/25/2020 @ 10.0wks c/w LMP dating. (ASH by U/S 06/23/2021) FINAL ASH: 06/19/2021 A NEG Rhogam: 04/14/21 Rubella non immune/VZV:pending Genetic testing: Quad Negative FAS: done 01/31/21 WNL. Posterior placenta, no previa. 3VC. Size c/w dating EFW 27%tile. Glucola ordered 03/24, antibody screen, and VZV 04/14/21; emesis with glucola; not complete Influenza: declined TDAP: declined GBS @ 36 wks HSV: denies self and partner Breast pump Rx: printed 03/24/21 MOD: . Heath. Gender- surprise! pp contraception: pap: 07/22/2017 NORMAL- feel shas had one more recently, will bring. 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 PE: VS 89 118/73 100% GEN: NAD HEENT: NCAT CV: RR RESP: nl effort ABD; gravid, S&NT EXT: no TTP PSYCH: appropriate affect NEURO: A&O A/P: 26 yo at 30+5 wga here with N/V -Received 1L IVF and IV antiemetics. Reports symptoms have resolved -Provided with Rx for famotidine -AGA/Cat I tracing for early gestational age Warning signs reviewed. FU in OB clinic
== END 2021-04-15 22:20 | disposition home or self-care (01) ==
LOC: WFO 20:24 → FBP 20:26 → WFO 22:20
PROVIDERS: ATTEND Obstetrics & Gynecology
DX: O21.0 Mild hyperemesis gravidarum (principal); Z3A.30 30 weeks gestation of pregnancy; O99.613 Diseases of the digestive system complicating pregnancy, third trimester; K21.9 Gastro-esophageal reflux disease without esophagitis
CPT/HCPCS: 59025; 96374; 99214; J2765; J7120; 99213

== ENCOUNTER 2021-05-22 18:38 | Outpatient (CLI) | payer OTHER ==
[2021-05-22] MEDS ORDERED: ONDANSETRON 4 MG/2 ML VIAL IVP PRN (19:00)
[2021-05-22] MEDS ORDERED: LACTATED RINGERS 1,000 ML IV ONE (19:02)
[2021-05-22] MEDS ORDERED: SODIUM CHLORIDE FLUSH 0.9% 10 ML SYRINGE IVP PRN (19:05)
[2021-05-22 20:05] VITALS: BP 105/56
--- NOTE | 2021-05-23 12:55 | PROVIDER PROGRESS NOTE ---
- HPI Chief Complaint: Hyperemesis Current : Current EDU 06/19/21 Gestation 36 Weeks and 0 Days 3 Para 0 Vital Signs Temperature 37.1 C 05/22/21 19:46 Heart Rate 79 05/22/21 19:46 Respiratory Rate 20 05/22/21 19:46 Blood Pressure 105/56 L 05/22/21 19:46 O2 Saturation 100 05/22/21 19:46 Temperature 37.1 C 05/22/21 20:14 Heart Rate 79 05/22/21 20:14 Respiratory Rate 20 05/22/21 20:14 Blood Pressure 105/56 L 05/22/21 20:14 O2 Saturation 100 05/22/21 19:46 - Procedures OB Procedure Performed: NST NST Procedure: NST Procedure Start Date 05/22/21 Start Time 18:45 Stop Time 20:25 Vibroacoustic Stimulation Used No Patient States Movement Yes - Plan Plan: Ky presents to [facility] with c/o nausea and vomiting. She states she has not been able to keep anything down consistently for the past 24 hours and she is feeling dehydrated. She states all of the oral medications she has tried have not given her any relief so she has not taken anything today to help. She states over the past several hours she has noticed streaks of blood in her vomit. She denies vaginal bleeding, leakage of fluid or contractions. She reports +FM. NST performed 05/22/2021 NST read 05/23/2021 NST reactive. FHR baseline 150s, moderate variability, + accels, no decels No contractions appreciated via tocometry BP 105/56, HR 79, T 98.7 Pt given 1 liter of IV LR for hydrations and 4mg IVP zofran x 1. She was then able to eat a whole turkey sandwich and feels significantly improved. She was released home with precautions. FINAL DIAGNOSIS: Hyperemesis
== END 2021-05-22 21:00 | disposition home or self-care (01) ==
LOC: WFO 18:38 → FBP 18:40 → WFO 21:00
PROVIDERS: ATTEND Nurse Practitioner Obstetrics & Gynecology
DX: O21.2 Late vomiting of pregnancy (principal); Z3A.36 36 weeks gestation of pregnancy
CPT/HCPCS: 59025; 96374; J7120; 99213

== ENCOUNTER 2021-05-27 08:00 | Outpatient (CLI) | payer OTHER | END 2021-05-27 23:59 | disposition home or self-care (01) | LOC: LAB.WC 08:00 | PROVIDERS: ATTEND Nurse Practitioner Obstetrics & Gynecology | DX: Z36.85 Encounter for antenatal screening for Streptococcus B (principal) | CPT/HCPCS: 87081; 87797 ==

== ENCOUNTER 2021-05-27 11:54 | Outpatient (CLI) | payer OTHER ==
[2021-05-27] MEDS ORDERED: LACTATED RINGERS 1,000 ML IV ONE (11:59)
[2021-05-27] MEDS ORDERED: ONDANSETRON 4 MG/2 ML VIAL IVP PRN (11:59)
[2021-05-27 12:22] VITALS: BP 102/56
[2021-05-27 12:28] LABS: ALBUMIN/GLOBULIN RATIO 0.8 (1.0-2.2); BILIRUBIN,TOTAL 0.4 mg/dL (0.2-1.0); CALCIUM 8.6 mg/dL (8.5-10.3); CREATININE 0.5 mg/dL (0.4-1.0); POTASSIUM 4.1 mmol/L (3.5-5.0); TOTAL PROTEIN 6.6 g/dL (6.7-8.2)
--- NOTE | 2021-05-28 14:31 | PROVIDER PROGRESS NOTE ---
- HPI Chief Complaint: Hyperemesis Current : Current EDU 06/19/21 Gestation 36 Weeks and 5 Days 3 Para 0 Vital Signs Temperature 36.5 C 05/27/21 12:21 Heart Rate 65 05/27/21 12:21 Respiratory Rate 16 05/27/21 12:21 Blood Pressure 102/56 L 05/27/21 12:21 O2 Saturation 99 05/27/21 12:21 Temperature 36.5 C 05/27/21 12:21 Heart Rate 65 05/27/21 12:21 Respiratory Rate 16 05/27/21 12:21 Blood Pressure 102/56 L 05/27/21 12:21 O2 Saturation 99 05/27/21 12:21 - Procedures OB Procedure Performed: NST NST Procedure: NST Procedure Start Time 18:45 Stop Time 13:16 Patient States Movement Yes - Plan Plan: Pt evaluated face to face Ky presents to [facility] following her routine office visit secondary to persistent nausea and vomiting since 0200 this morning. She states she feels dehydrated. She denies VB, Lof, or contractions. Reports +FM. NST performed 05/27/2021 NST read 05/28/2021 NST reactive. FHR baseline 140s, moderate variability, + accels, no decels No contractions appreciated via tocometry 1 liter of LR administered over 1 hour. 4mg IVP zofran administered Pt reports significant improvement in symptoms. She is able to eat a turkey sandwich. Rx sent for PO zofran to preferred pharmacy. Pt released home with precautions. She denies further questions or concerns at this time. FINAL DIAGNOSIS: Hyperemesis gravidarum
== END 2021-05-27 13:20 | disposition home or self-care (01) ==
LOC: WFO 11:54 → FBP 11:56 → WFO 13:20
PROVIDERS: ATTEND Nurse Practitioner Obstetrics & Gynecology
DX: O21.0 Mild hyperemesis gravidarum (principal); Z3A.24 24 weeks gestation of pregnancy; Z36.85 Encounter for antenatal screening for Streptococcus B
CPT/HCPCS: 36415; 80053; 87081; 87181; 87797; 96361; 96374; 99211; J7120

== ENCOUNTER 2021-06-11 00:55 | Outpatient (CLI) | payer OTHER ==
[2021-06-11] MEDS ORDERED: ONDANSETRON ODT 4 MG TABLET TL SCH (01:35)
[2021-06-11] MEDS ORDERED: LACTATED RINGERS 1,000 ML IV ONE (01:42)
[2021-06-11] MEDS ORDERED: ONDANSETRON 4 MG/2 ML VIAL IVP SCH (01:45)
[2021-06-11 03:46] VITALS: BP 106/58
== END 2021-06-11 03:40 | disposition home or self-care (01) ==
LOC: WFO 00:55 → FBP 00:58 → WFO 03:40
PROVIDERS: ATTEND Obstetrics & Gynecology
DX: O21.2 Late vomiting of pregnancy (principal); Z3A.38 38 weeks gestation of pregnancy
CPT/HCPCS: 59025; 96361; 96374; 99214; J7120

== ENCOUNTER 2021-06-21 00:41 | Outpatient (CLI) | payer OTHER ==
[2021-06-21] MEDS ORDERED: ONDANSETRON 4 MG/2 ML VIAL IVP PRN (01:01)
[2021-06-21] MEDS ORDERED: LACTATED RINGERS 1,000 ML IV ONE (01:06)
[2021-06-21] MEDS ORDERED: LACTATED RINGERS 500 ML IV ONE (02:33)
[2021-06-21] MEDS ORDERED: CALCIUM CARBONATE CHEW 500 MG TABLET PO SCH (02:38)
[2021-06-21] MEDS ORDERED: ACETAMINOPHEN 500 MG TABLET PO SCH (03:00)
[2021-06-21] MEDS: BENZOCAINE/MENTHOL LOZENGE MM PRN ×2 (03:01→04:13)
[2021-06-21 03:12] VITALS: BP 125/73
--- NOTE | 2021-06-21 11:18 | PROVIDER PROGRESS NOTE ---
- HPI Chief Complaint: Hyperemesis Current : Current EDU 06/19/21 Gestation 40 Weeks and 2 Days 3 Para 0 Vital Signs Temperature 37.2 C 06/21/21 00:52 Heart Rate 79 06/21/21 00:52 Respiratory Rate 16 06/21/21 00:52 Blood Pressure 125/73 06/21/21 00:52 O2 Saturation 99 06/21/21 00:52 Temperature 37.2 C 06/21/21 02:00 Heart Rate 79 06/21/21 00:52 Respiratory Rate 16 06/21/21 00:52 Blood Pressure 125/73 06/21/21 00:52 O2 Saturation 99 06/21/21 00:52 - Procedures OB Procedure Performed: NST Diagnosis/Indication for NST: Other NST Procedure: NST Procedure Start Date 06/21/21 Start Time 00:47 Stop Time 02:59 Vibroacoustic Stimulation Used No Patient States Movement Yes - Plan Plan: Ky is a 26yo @ 40.2wks gestation by LMP c/w 10.0wks gestation who presents to [facility] with c/o vomiting blood. She states she has experienced this previously and she is certain it is related to the amount she has been vomiting today and yesterday. She states she is feeling rather dehydrated as well and feels like she needs IV fluids and anti-nausea medication which has historically worked well for her in the past. She has been unable to eat much of anything for the past several days and has not been able to keep much fluids down today. She denies vaginal bleeding, leakage of fluid or contractions. She reports +FM. She is experiencing moderate to mild groin discomfort that she feels is exacerbated by vomiting. She also reports a sore throat and a headache which she gets when she is dehydrated. She denies dizziness, visual disturbances or RUQ pain. NST performed 06/21/2021 NST read 06/21/2021 NST reactive. FHR baseline 120s, moderate variability, + accels, no decels Occasional contraction appreciated via tocometry however pt does not appreciate contraction. Palpates mild with soft resting tone. SVE deferred IV initiated and 1.5L LR administered over 1.5 hours 4mg IV zofran administered 1000mg PO tylenol TUMS Cepacol throat lozenge x 2 Assessment: Pt improved with medication management and IV fluids. She was given a turkey sandwich per her request and reports feeling significantly improved. Plan: Pt released home with precautions. Pt has emergency contact information and knows when to present for evaluation. She verbalized understanding and agrees to above plan. She denies further questions or concerns at this time. FINAL DIAGNOSIS: Hyperemesis
== END 2021-06-21 04:15 | disposition home or self-care (01) ==
LOC: WFO 00:41 → FBP 01:00 → WFO 04:15
PROVIDERS: ATTEND Obstetrics & Gynecology
DX: O21.2 Late vomiting of pregnancy (principal); Z3A.40 40 weeks gestation of pregnancy; O99.891 Other specified diseases and conditions complicating pregnancy; R07.0 Pain in throat; R51.9 Headache, unspecified; R10.2 Pelvic and perineal pain
CPT/HCPCS: 59025; 96361; 96374; 99214; A9270; J7120

== ENCOUNTER 2021-06-25 11:56 | Outpatient (CLI) | payer OTHER ==
[2021-06-25 12:46] VITALS: BP 121/79
--- NOTE | 2021-06-25 13:29 | PROCEDURE REPORT ---
- HPI Diagnosis/Indication for NST: Post-dates gestation Current EDU 06/19/21 Gestation 40 Weeks and 6 Days 3 Para 0 Vital Signs Temperature 36.9 C 06/25/21 12:06 Heart Rate 80 06/25/21 12:06 Respiratory Rate 16 06/25/21 12:06 Blood Pressure 123/76 06/25/21 12:06 Temperature 36.9 C 06/25/21 12:24 Heart Rate 80 06/25/21 12:24 Respiratory Rate 16 06/25/21 12:24 Blood Pressure 121/79 06/25/21 12:24 O2 Saturation - NST Procedure NST Procedure Start Date 06/25/21 Start Time 12:05 Stop Time 12:32 Vibroacoustic Stimulation Used No Patient States Movement Yes - Results and Plan Plan: Ky presents to [facility] for scheduled NST secondary to post-dates . She denies concerns or complaints at this time. NST performed 06/25/2021 NST read 06/25/2021 FHR baseline 125, moderate variability, + accels, no decels No contractions appreciated via tocometry Plan: Patient released home with precautions. FINAL DIAGNOSIS: Post-dates
== END 2021-06-25 12:40 | disposition home or self-care (01) ==
LOC: WFO 11:56 → FBP 11:57 → WFO 12:40
PROVIDERS: ATTEND Nurse Practitioner Obstetrics & Gynecology
DX: O48.0 Post-term pregnancy (principal); Z3A.40 40 weeks gestation of pregnancy
CPT/HCPCS: 59025; 99213

== ENCOUNTER 2021-07-01 08:05 | Inpatient (IN) | payer OTHER ==
[2021-07-01] MEDS ORDERED: SODIUM CHLORIDE FLUSH 0.9% 10 ML SYRINGE IVP PRN (08:24)
[2021-07-01] MEDS ORDERED: CARBOPROST TROMETHAMINE 250 MCG/ML AMP IM PRN (08:24)
[2021-07-01] MEDS ORDERED: OXYTOCIN 10 UNIT/ML VIAL IM PRN (08:24)
[2021-07-01] MEDS ORDERED: LIDOCAINE-MPF 1% 30 ML VIAL ID PRN (08:24)
[2021-07-01] MEDS ORDERED: miSOPROStoL 200 MCG TABLET BC PRN (08:24)
[2021-07-01] MEDS ORDERED: OXYTOCIN/SODIUM CHLORIDE 500 ML IV PRN (08:24)
[2021-07-01] MEDS ORDERED: METHYLERGONOVINE 0.2 MG/ML VIAL IM PRN (08:24)
[2021-07-01] MEDS ORDERED: TRANEXAMIC ACID IN NACL 1,000 MG/100 ML BAG IV PRN (08:24)
[2021-07-01 09:25] LABS: BASOPHILS % (AUTO) 0.3 %; EOSINOPHILS # (AUTO) 0.1 10^3/uL (0.0-0.7); EOSINOPHILS % (AUTO) 1.2 %; HCT - HEMATOCRIT 37.1 % (37.0-47.0); HGB - HEMOGLOBIN 12.6 g/dL (12.0-16.0); LYMPHOCYTES % (AUTO) 26.2 %; MEAN CORPUSCULAR HEMOGLOBIN 31.2 pg (27.0-31.0); MEAN CORPUSCULAR VOLUME 91.8 fL (81.0-99.0); MEAN PLATELET VOLUME 11.8 fL (7.9-10.8); MONOCYTES # (AUTO) 0.5 10^3/uL (0.0-1.0); MONOCYTES % (AUTO) 6.6 %; NEUTROPHILS # (AUTO) 5.1 10^3/uL (1.5-6.6); NEUTROPHILS % (AUTO) 65.4 %; PLT - PLATELET COUNT 243 10^3/uL (130-450); RED BLOOD COUNT 4.04 10^6/uL (4.20-5.40); RED CELL DISTRIBUTION WIDTH 13.5 % (12.0-15.0); WHITE BLOOD COUNT 7.7 x10^3/uL (4.8-10.8)
--- NOTE | 2021-07-01 09:25 | ANESTHESIA ---
Pre-Anesthesia VS, & Labs - Diagnosis Induction of labor - Procedure Vaginal delivery Height: 5 ft 3 in - NPO Last Fluid Intake: clear liquids - Is Patient ?: Yes Home Medications and Allergies Active Medications Carboprost Tromethamine (Carboprost Tromethamine 250 Mcg/Ml Amp) 250 mcg IM Q15M PRN PRN Reason: Step 4: Hemorrhage protocol Stop: 07/06/21 08:25 Oxytocin/Sodium Chloride (Pitocin/Sodium Chloride) 500 mls @ 999 mls/hr IV PRN PRN; Protocol PRN Reason: POST- HEMORR PREVENTION Stop: 07/06/21 08:25 Tranexamic Acid (Tranexamic 1,000 Mg/100ml-Nacl) 1,000 mg in 100 mls @ 600 mls/hr IV .ONCE PRN PRN Reason: EBL >1200mL and within 3hr Stop: 07/06/21 08:25 Lidocaine HCl (Lidocaine-Mpf 1% 30 Ml Vial) 30 ml ID .ONCE PRN PRN Reason: PERINEAL REPAIR Stop: 07/06/21 08:25 Methylergonovine Maleate (Methylergonovine 0.2 Mg/Ml Vial) 0.2 mg IM .ONCE PRN PRN Reason: Step 2: Hemorrhage protocol Stop: 07/06/21 08:25 Misoprostol (Misoprostol 200 Mcg Tablet) 800 mcg BC .ONCE PRN PRN Reason: Step 3: Hemorrhage protocol Stop: 07/06/21 08:25 Misoprostol (Misoprostol 100 Mcg Tablet) 50 mcg BC Q4HR TYE Ondansetron HCl (Ondansetron 4 Mg/2 Ml Vial) 4 mg IVP Q4HR PRN PRN Reason: Nausea / Vomiting Oxytocin (Oxytocin 10 Unit/Ml Vial) 10 unit IM .ONCE PRN PRN Reason: Step one: If no IV access Stop: 07/06/21 08:25 Sodium Chloride (Sodium Chloride Flush 0.9% 10 Ml Syringe) 10 ml IVP 0100,0900,1700 TYE Sodium Chloride (Sodium Chloride Flush 0.9% 10 Ml Syringe) 10 ml IVP PRN PRN PRN Reason: NEEDED PER PROVIDER ORDERS Allergies/Adverse Reactions: Allergies Allergy/AdvReac Type Severity Reaction Status Date / Time Penicillins Allergy Anaphylaxis Verified 11/21/20 21:12 Anes History & Medical History - Anesthetic History Family history of Anesthesia Complications: Denies Family history of Malignant Hyperthermia: Denies - Medical History Cardiovascular: reports: None Pulmonary: reports: None Gastrointestinal: reports: None Urinary: reports: None Neuro: reports: None Musculoskeletal: reports: None Endocrine/Autoimmune: reports: None Blood Disorders: reports: None Skin: reports: None Smoking Status: Never smoker Psychosocial: reports: No issues indicated History of Cancer?: No - Obstetrical History : 1 Parity: 0 Events: reports: Other (Hyperemesis gravidarum) Exam General: Alert, Oriented x3, Cooperative, No acute distress Dental: WNL Mouth Openin Fingerbreadth Neck Mobility: Normal Mallampati classification: II Thyromental Distance: 4-6 cm Mental/Cognitive Status: Alert/Oriented X3, Normal for patient Plan Anesthesia Type: Epidural Consent for Procedure(s) Verified and Reviewed: Yes Code Status: Attempt Resuscitation ASA classification: 2-Mild systemic disease Is this case an emergency?: No
[2021-07-01] MEDS: miSOPROStoL 100 MCG TABLET BC SCH ×2 (09:43→13:50)
--- NOTE | 2021-07-01 10:19 | HISTORY & PHYSICAL EXAMINATION ---
Admit History - Visit Reason Visit Reason: Other - : 3 Parity: 0 Premature: 0 Ectopic: 0 : 2 Care: positive: [facility] Risk/History: positive: None Complications This : positive: Other Smoking Status: Never smoker - Mother's Labs Mother's Blood Type: positive: A Mother's RH: positive: Negative GBS: positive: Group B Strep Positive Rubella Status: positive: Non-immune Meds/Allgy - Home Medications Home Medications: Ambulatory Orders Medication Instructions Recorded Confirmed Metoclopramide [Reglan] 10 mg PO Q6H PRN #14 tablet 11/21/20 Ondansetron Odt [Zofran] 4 mg TL Q6H PRN #10 tablet 11/21/20 Famotidine [Acid-Pep] 20 mg PO DAILY #60 tablet 04/15/21 - Allergies Allergies/Adverse Reactions: Allergies Allergy/AdvReac Type Severity Reaction Status Date / Time Penicillins Allergy Anaphylaxis Verified 11/21/20 21:12 Review of Systems - Constitutional Constitutional: denies: Fatigue, Fever, Chills - Eyes Eyes: denies: Blurred vision, Spots in vision, Dipolpia - Cardiovascular Cariovascular: denies: Irregular heart rate, Chest pain, Edema - Respiratory Respiratory: denies: Cough, SOB at rest - Gastrointestinal Gastrointestinal: denies: Constipation, Diarrhea, Nausea, Vomiting - Integumentary Integumentary: denies: Rash, Pruritis - Neurological Neurological: denies: Headache Physical - Abdominal Exam Vital Signs: Temp Pulse Resp BP Pulse Ox 36.7 C 84 17 131/88 H 07/01/21 08:13 07/01/21 08:13 07/01/21 08:13 07/01/21 08:13 Contraction Frequency (min/apart): none Contraction Intensity: positive: Mild Uterine Resting Tone: positive: Soft - Monitoring Heart Rate Baseline: 140 Strip Review: positive: Category I - Presentation Presentation: positive: Vertex - Vaginal Exam Membranes: positive: Membranes intact Dilation (in cm): 1 Station: positive: -1 - Speculum Exam Speculum Exam Performed: positive: No Plan for Labor - Plan For Labor I expect patient to be DC'd or transferred within 96 hours.: Yes Plan for Labor: Ky shanks a 26yo @ 41.5wks gestation by LMP c/w 10.0wk U/S who presents today for medical induction of labor secondary to postdates . She states she is doing well now. She denies vaginal bleeding, leakage of fluid or contractions. She reports +FM. Expressed anxiety about the pain associated with labor. She has been a patient of [facility] through the duration of her which as been complicated by her consistent hyperemsis which has required IV hydration and antinausea medications consistently throughout her . She is also noted to be GBS positive and allergic to penicillins and will be treated per protocol. She will be admitted for active management. She is supported by her Heath today. Dating criteria: LMP 09/12/2020 Initial U/S @ 10.0wks c/w LMP dating Serial exams - agree OB Hx: G1: 06/21/2015, elective termination @ 12wks G2: 06/01/2018, SAB @ 8wks G3: current; complicated by hyperemesis Medications: PNV, zofran PRN, reglan PRN Allergies: Penicillins - critical PMHx: unremarkable Surgical Hx: none Social Hx: never smoker. No ETOH or IVDA Family Hx: Stroke/CVA - father; asthma - father; psychiatric -mother; drug abuse- mother course: LMP: 09/12/2020 ASH by LMP:06/19/2021 Initial U/S:11/25/2020 @ 10.0wks c/w LMP dating. (ASH by U/S 06/23/2021) FINAL ASH: 06/19/2021 A NEG Rhogam: 04/14/2021 (antibody neg) Rubella non immune/VZV:imm Genetic testing: Quad Negative FAS: done 01/31/21 WNL. Posterior placenta, no previa. 3VC. Size c/w dating EFW 27%tile. Glucola - declined A1c 4.9 Discussed 39.0wk IOL for unknown GDM. Will discuss with 04/30/21 Influenza: declined TDAP: declined COVID: declined GBS: POSITIVE; IPAP in labor- Penicillin allergic (sensitivities performed) HSV: denies self and partner Breast pump Rx: printed 03/24/21 MOD: . Heath. Gender- surprise! pp contraception: pap: 07/22/2017 NORMAL- feel shas had one more recently, will bring. Physical exam: Normocephalic, atraumatic Heart RRR w/o M/G/R Lungs CTAB Abdomen gravid, soft, nontender EFW 3400g FHR baseline 140s, moderate variability, + accels, no decels Contractions no appreciated via tocometry Bilateral LE's trace edema Mood is irritable however this is consistent with pt's baseline supportive at the bedside. Assessment: 26yo @ 41.5wks gestation by LMP c/w 10.0wk U/S Postdates GBS positive - penicillin allergic Continuous monitoring Pre-induction cervical ripening with misoprostol 50mcg q4hrs for pre-induction cervical ripening. Jacuzzi PRN. Nitrous oxide PRN. Epidural per maternal request. Anticipate .
[2021-07-01] MEDS: ONDANSETRON 4 MG/2 ML VIAL IVP PRN (16:01)
[2021-07-01] MEDS: fentaNYL 100 MCG/2 ML VIAL IVP PRN ×2 (17:06→19:15)
--- NOTE | 2021-07-01 17:48 | PROVIDER PROGRESS NOTE ---
Labor Progress Note - Uterine Monitoring Uterine Monitoring Mode: positive: External toco Contraction Frequency (min/apart): 4-6 Contraction Intensity: positive: Mild Uterine Resting Tone: positive: Soft - Monitoring Monitor Mode: positive: External ultrasound Heart Rate Baseline: 130 Heart Rate Variability: positive: Moderate (6-25 bmp) Accelerations: positive: Present, 15x15 Decelerations: positive: None Strip Review: positive: Category I - Vaginal Exam Dilation (in cm): 1-2 Effacement (%): 100 Station: 0 Cervical Position: Midposition - Labor Progress Note Labor Progress Note/Additional Text: S: Breathing through contractions. Type and screen unable to be processed in the lab and pt declines re-draw. Hoping to get something to eat and then will likely get an epidural after initiating pitocin. Her partner is supportive at the bedside. O: FHR baseline 130s, moderate variability, + accels, no decels Contractions palpate mild every 4-6 minutes with soft resting tone SVE 1-2/100/0, mid position, soft A: 26yo @ 41.5wks gestation by LMP c/w 10.0wk U/S Postdates GBS positive - penicillin allergic FHR Category I P: D/c misoprostol now Initiate pitocin for IOL with titration per protocol Initiate vancomycin for GBS prophylaxis. Continuous monitoring Nitrous oxide PRN. Jacuzzi PRN. Epidural per maternal request. Anticipate .
[2021-07-01] MEDS ORDERED: VANCOMYCIN INJ 2 GM in SODIUM CHLORIDE 0.9% 500 ML IV SCH (17:49)
[2021-07-01] MEDS ORDERED: OXYTOCIN/SODIUM CHLORIDE 500 ML IV SCH ×2 (18:00)
[2021-07-01] MEDS ORDERED: VANCOMYCIN INJ 2 GM in SODIUM CHLORIDE 0.9% 500 ML IV ONE (18:00)
[2021-07-01] MEDS: SODIUM CHLORIDE FLUSH 0.9% 10 ML SYRINGE IVP SCH (18:14)
[2021-07-01] MEDS: LACTATED RINGERS 1,000 ML IV SCH (18:15)
[2021-07-01] MEDS ORDERED: ROPIVACAINE 0.2% 200 MG/100 ML BAG EP ONE (19:13)
[2021-07-01] MEDS ORDERED: diphenhydrAMINE INJ 50 MG/ML VIAL IVP PRN (19:38)
[2021-07-01] MEDS ORDERED: NALOXONE 0.4 MG/ML VIAL IVP PRN (19:38)
[2021-07-01] MEDS ORDERED: ROPIVACAINE 0.2% 200 MG/100 ML BAG EP PRN (19:38)
[2021-07-01] MEDS ORDERED: ePHEDrine 50 MG/ML VIAL IVP PRN (19:38)
--- NOTE | 2021-07-02 00:22 | PROVIDER PROGRESS NOTE ---
Labor Progress Note - Uterine Monitoring Uterine Monitoring Mode: positive: External toco Contraction Intensity: positive: Mild - Monitoring Monitor Mode: positive: External ultrasound Heart Rate Baseline: 140 Heart Rate Variability: positive: Moderate (6-25 bmp) Accelerations: positive: Present, 15x15 Decelerations: positive: Variable, Intermittent (<50% x20 min) Strip Review: positive: Category I - Vaginal Exam Dilation (in cm): 5 Effacement (%): 100 Station: 0 - Labor Progress Note Labor Progress Note/Additional Text: S: Feeling comfortable with epidural. She is feeling frustrated and unheard when she voices complaints. Reports she is feeling hungry and desires to eat but voices understanding when explained that she cannot eat when she has an epid ural. Offered Jello which she declined and states she feels satisfied after a Popsicle and ice chips. Requests new RN for care which was reviewed with the charge nurse who will take over patient care. Her partner Heath is supportive at the bedside. O: FHR baseline 140, moderate variability, no accels, intermittent variable deceleration SVE 5/100/0 AROM moderate amount of clear fluid S/p 1 dose of 2g Vancomycin per protocol A: 26yo @ 41.6wks gestation by LMP c/w 10.0wk U/S postdates GBS positive FHR Category II P: Continue titration of pitocin for IOL with titration per protocol Continuous monitoring. Maintain epidural for pain management Anticipate
[2021-07-02] MEDS: LACTATED RINGERS 1,000 ML IV SCH (00:43)
[2021-07-02] MEDS: ONDANSETRON 4 MG/2 ML VIAL IVP PRN ×2 (00:43→10:57)
[2021-07-02] MEDS ORDERED: METOCLOPRAMIDE 10 MG/2 ML VIAL IVP PRN (01:05)
[2021-07-02] MEDS ORDERED: WITCH HAZEL/GLYCERIN 1 PAD TOP PRN (02:29)
--- NOTE | 2021-07-02 02:43 | DELIVERY NOTE ---
Delivery Note - Labor Labor: positive: Augmented by ARM, Induced by oxytocin - Delivery Method Infant Delivery Method: positive: Spontaneous vaginal delivery - Cervical Ripening Method Cervical Ripening Method: positive: Misoprostil - Presentation Presentation: positive: Vertex, LAKESHIA - right occiput anterior - Nuchal Cord Nuchal Cord: positive: Present, Reduced - Amniotic Fluid Description Amniotic Fluid Description: positive: Clear - Episiotomy Type Episiotomy Type: positive: None - Laceration Laceration: positive: 1st degree, Labial, Perineal - Suture Suture Type: positive: Vicryl Suture Size: positive: 3-0, 4-0 - Delivery Outcome Delivery Outcome: positive: Livebirth - : positive: Placed in direct skin contact with mother, Stimulated, Warmed, [place] used [place] sex: positive: Male - Cord Cord: positive: 3 vessels - Placenta Placenta: positive: Intact, Spontaneous - Estimated Blood Loss Estimated Blood Loss (in cc): 150 - Post Delivery Events Post Delivery Events: positive: No post delivery events - Delivery Comments (Free Text/Narrative) Delivery Comments (Free Text/Narrative): Labor: This 26yo @ 41.6wks gestation by LMP c/w 10.0wk U/S presented on 07/01/2021 for medical induction of labor secondary to postdates . Upon arrival SVE was 1/90/-1 and vertex. She was given 2 doses of 50mcg BC misoprostol for pre-induction cervical ripening. Pitocin was initiated for induction of labor with a maximum infusion rate of 10mU/mL. FHR pattern demonstrated Category II pattern throughout much of the active phase of labor but remained overall reassuring. Epidural placed per maternal request. AROM occurred at 2350 and was noted to be a moderate amount of clear fluid. Pt progressed to c/c/+3 @ 0119. : Normal of viable male infant on 07/02/2021 @ 0120. Nuchal cord x 1 was reduced. The was stimulated, dried, and placed skin to skin. 's were 8/8 at 1 and 5 minutes respectively. Pitocin administered via IV for hemostasis. The umbilical cord was allowed to stop pulsating at which time it was doubly clamped by CNM and cut by FOB. 3VC. Cord blood was obtained. Fundal massage and gentle cord traction applied for active management of the third stage. Placenta delivered spontaneously and intact @ 0124. EBL 150mL. Fourth stage: Uterine fundus firm and there is no excessive bleeding. The perineum, vagina, and cervix were inspected and noted to have a 1st degree perineal laceration which was repaired using a 3-[address]-1 needle in standard fashion and under sterile conditions. In addition she was noted to have a 1st degree right labial laceration which was repaired with a 4-0 vicryl on an SH needle in standard fashion under sterile conditions. Vaginal examination following repair was done. Tissues well approximated. initiated. Family bonding well. Both mother and baby were left in stable condition.
[2021-07-02] MEDS: ACETAMINOPHEN 500 MG TABLET PO SCH ×3 (03:36→21:40)
[2021-07-02] MEDS: IBUPROFEN 800 MG TABLET PO SCH ×4 (03:37→21:40)
[2021-07-02] MEDS ORDERED: VANCOMYCIN INJ 1 GM in SODIUM CHLORIDE 0.9% 250 ML IV SCH (06:00)
[2021-07-02] MEDS: HYDROCORTISONE 1% CREAM 28 GM TUBE PR PRN (06:37)
[2021-07-02] MEDS: DOCUSATE SODIUM 100 MG CAPSULE PO SCH ×2 (09:25→21:41)
[2021-07-02] MEDS: SODIUM CHLORIDE FLUSH 0.9% 10 ML SYRINGE IVP SCH ×2 (10:57→21:45)
[2021-07-02] MEDS: oxyCODONE 5 MG TABLET PO PRN ×4 (11:09→23:05)
[2021-07-02] MEDS: FAMOTIDINE 20 MG TABLET PO SCH ×2 (11:21→23:05)
--- NOTE | 2021-07-02 18:12 | PROVIDER PROGRESS NOTE ---
Subjective - Subjective Subjective: S: Bonding well with baby. with some difficulty. Bleeding decreased and is light. Pain well controlled with oxycodone. Discussed transitioning to ibuprofen and tylenol as I will not send her home with an oxycodone Rx. Mood is good. She states she is sore but feels relaxed. O: BP 114/79, HR 17, RR 66, T 36.8 Heart RRR w/o M/G/R, lungs CTAB, abdomen soft and nontender, perineum intact, light lochia rubra, bilateral LE's trace edema A: 26yo -->P1 Day of delivery s/p TSVD viable male 1st degree perineal laceration -intact P: Continue routine pp care and medications. Evaluate for discharge home tomorrow. Objective - Vital Signs/Intake & Output Vital Signs: Vital Signs x48h Temp Pulse Resp BP Pulse Ox 07/02/21 17:43 36.8 C 66 17 114/79 99 07/02/21 12:19 37.3 C 71 16 112/73 100 Intake & Output: Intake & Output 06/29/21 06/30/21 07/01/21 07/02/21 23:59 23:59 23:59 23:59 Intake Total 981.25 1136.5 Output Total 1100 Balance 981.25 36.5 - Lab Results Fish Bones: 07/01/21 09:00 Other Labs: Lab Results x24hrs 07/02/21 Range/Units 07:14 Blood Type A NEGATIVE Weak D (Du) WEAK-D NEGATIVE Maternal Bleed NEGATIVE (NEGATIVE)
[2021-07-03] MEDS: oxyCODONE 5 MG TABLET PO PRN ×2 (03:12→13:37)
[2021-07-03] MEDS: HYDROCORTISONE 1% CREAM 28 GM TUBE PR PRN ×2 (03:25→13:37)
[2021-07-03] MEDS: IBUPROFEN 800 MG TABLET PO SCH ×2 (03:25→09:11)
[2021-07-03] MEDS: ACETAMINOPHEN 500 MG TABLET PO SCH ×2 (05:27→13:35)
--- NOTE | 2021-07-03 08:19 | Discharge Plan ---
Discharge Plan Problem Reviewed?: Yes Disposition: Home, Self Care Condition: Good Diet: Regular Activity Restrictions: No Restrictions Shower Restrictions: No Driving Restrictions: No Weight Bearing: Full Weight No Smoking: If you smoke, Please STOP! Call for help. Follow-up with: Jaimee Calixto CNM, ARNP [Provider Admit Priv/Credential] -
--- NOTE | 2021-07-03 08:26 | DISCHARGE SUMMARY ---
Discharge Summary Condition at Discharge: Good Discharge Disposition: 01 Home, Self Care - HOSPITAL COURSE Hospital Course: Date of admission: 07/01/2021 Date of discharge: 07/03/2021 Diagnosis on Admission: 1. 26yo @ 41.5wks gestation by LMP c/w 10.0wk U/S 2. Postdates 3. GBS positive - penicillin allergic 4. FHR Category I Diagnosis on discharge: 1. 26yo s/p TSVD viable male infant 2. 1st degree perineal laceration 3. 4. normal recovery Brief history: She is a patient of [facility] who presented on 07/01/2021 for medical induction of labor secondary to postdates . She received 2 doses of 50mcg BC misoprostol for effective pre-induction cervical ripening. Pitocin initiated for induction of labor with a maximum infusion rate of 10mU/mL. AROM for labor augmentation. Pt progressed to spontaneously deliver a viable male on 07/02/2021 @ 0120. Apgars were 8/8 at 1 and 5 minutes respectively. EBL 150mL. 1st degree perineal laceration repaired in standard fashion and under sterile conditions. She has been doing well in her course. She is ambulating and tolerating a regular diet. She is urinating without difficulty and her lochia is normal. Her pain is well controlled with oral medications. She will be discharged home today on PPD#1 with instrcutions to continue taking her vitamin while . Rx for 1000mg Tylenol and 800mg Ibuprofen q 8hrs PRN pain sent to [facility] per pt request. She intends to f/u with myself at [facility] in 1 week for routine visit or sooner if needed. She has been given precautions to call if she has any worsening fevers, chills, abdominal pain, increased vaginal bleeding or foul smelling vaginal lochia. Physical Exam: Normocephalic, atraumtic, heart RRR w/o M/G/R, abdomen soft and nontender with fundus firm at U-1, perineum intact, light lochia rubra, bilateral LE's trace edema. - ALLERGIES Allergies/Adverse Reactions: Allergies Allergy/AdvReac Type Severity Reaction Status Date / Time Penicillins Allergy Anaphylaxis Verified 11/21/20 21:12 - MEDICATIONS Home Medications: Ambulatory Orders Medication Instructions Recorded Confirmed Metoclopramide [Reglan] 10 mg PO Q6H PRN #14 tablet 11/21/20 Ondansetron Odt [Zofran] 4 mg TL Q6H PRN #10 tablet 11/21/20 Famotidine [Acid-Pep] 20 mg PO DAILY #60 tablet 04/15/21 - LABS Result Diagrams: 07/01/21 09:00
[2021-07-03] MEDS ORDERED: RHO(D) IMMUNE GLOBULIN 300 MCG SYRINGE IVP ONE (09:02)
[2021-07-03] MEDS: DOCUSATE SODIUM 100 MG CAPSULE PO SCH (09:09)
[2021-07-03] MEDS: FAMOTIDINE 20 MG TABLET PO SCH (09:09)
[2021-07-03 10:16] VITALS: BP 124/70
[2021-07-03] MEDS: SODIUM CHLORIDE FLUSH 0.9% 10 ML SYRINGE IVP SCH (11:40)
== END 2021-07-03 16:20 | disposition home or self-care (01) | DRG 807 ==
LOC: WFO 08:05 → FBP 08:07 → WFO 08:23 → FBP 08:24 → OBSVTOIN 20:02
PROVIDERS: ADMIT Nurse Practitioner Obstetrics & Gynecology; ATTEND Nurse Practitioner Obstetrics & Gynecology
PROC: 10907ZC Drainage of Amniotic Fluid, Therapeutic from Products of Conception, Via Natural or Artificial Opening (ICD-10-PCS; principal; 2021-07-01)
PROC: 3E0DXGC Introduction of Other Therapeutic Substance into Mouth and Pharynx, External Approach (ICD-10-PCS; 2021-07-01)
PROC: 10E0XZZ Delivery of Products of Conception, External Approach (ICD-10-PCS; 2021-07-02)
PROC: 0HQ9XZZ Repair Perineum Skin, External Approach (ICD-10-PCS; 2021-07-02)
DX: O48.0 Post-term pregnancy (principal); Z37.0 Single live birth; Z3A.41 41 weeks gestation of pregnancy; O70.0 First degree perineal laceration during delivery; O99.824 Streptococcus B carrier state complicating childbirth; O69.81X0 Labor and delivery complicated by cord around neck, without compression, not applicable or unspecified; Z88.0 Allergy status to penicillin
CPT/HCPCS: 36415; 83033; 85025; 86900; 86901; 96365; 96366; 96375; 96376; A9270; J1200; J3370; J7120; 86850

== ENCOUNTER 2021-08-06 22:25 | Outpatient (CLI) | payer OTHER | END 2021-08-06 22:26 | disposition critical access hospital (66) | LOC: EMS 22:25 | DX: R11.2 Nausea with vomiting, unspecified (principal); R19.7 Diarrhea, unspecified | CPT/HCPCS: A0425; A0427 ==

== ENCOUNTER 2021-08-06 22:46 | Emergency (ER) | payer OTHER ==
[2021-08-06] MEDS ORDERED: SODIUM CHLORIDE 0.9% 1,000 ML IV STA ×2 (23:31→23:45)
[2021-08-06] MEDS ORDERED: ONDANSETRON 4 MG/2 ML VIAL IVP STA (23:31)
[2021-08-06 23:47] LABS: BASOPHILS % (AUTO) 0.2 %; EOSINOPHILS # (AUTO) 0.1 10^3/uL (0.0-0.7); EOSINOPHILS % (AUTO) 0.9 %; HCT - HEMATOCRIT 40.6 % (37.0-47.0); HGB - HEMOGLOBIN 13.5 g/dL (12.0-16.0); LYMPHOCYTES # (AUTO) 0.5 10^3/uL (1.5-3.5); LYMPHOCYTES % (AUTO) 4.6 %; MEAN CORPUSCULAR HEMOGLOBIN 30.2 pg (27.0-31.0); MEAN CORPUSCULAR HGB CONC 33.3 g/dL (32.0-36.0); MEAN CORPUSCULAR VOLUME 90.8 fL (81.0-99.0); MEAN PLATELET VOLUME 9.7 fL (7.9-10.8); MONOCYTES # (AUTO) 0.5 10^3/uL (0.0-1.0); MONOCYTES % (AUTO) 4.6 %; NEUTROPHILS # (AUTO) 9.2 10^3/uL (1.5-6.6); NEUTROPHILS % (AUTO) 89.6 %; PLT - PLATELET COUNT 234 10^3/uL (130-450); RED BLOOD COUNT 4.47 10^6/uL (4.20-5.40); RED CELL DISTRIBUTION WIDTH 12.3 % (12.0-15.0); WHITE BLOOD COUNT 10.2 x10^3/uL (4.8-10.8)
--- NOTE | 2021-08-06 23:47 | ED Physician Documentation ---
PD HPI NVD - Stated complaint Stated Complaint: N/V/D - Chief complaint Chief Complaint: Abd Pain - History obtained from History obtained from: Patient - History of Present Illness Timing - onset: Enter time (20:00), Today Timing - details: Abrupt onset Pain level max: 0 Pain level now: 0 Associated symptoms: No: Fever, Abdominal pain, Hematemesis, Melena, Hematochezia Contributing factors: Sick contact ( with similar symptoms) Worsened by: Eating Similar symptoms before: Has not had sx before Recently seen: Not recently seen - Additonal information Additional information: c/o nausea, vomiting, diarrhea since 8 PM today. She is not COVID vaccinated. She denies fevers. has similar symptoms. Patient is breast feeding, had induced vaginal delivery 07/02 (2 weeks post ASH), and her was complicated by hyperemesis gravidarum. Review of Systems Constitutional: reports: Reviewed and negative Cardiac: reports: Reviewed and negative Respiratory: reports: Reviewed and negative GI: reports: Nausea, Vomiting, Diarrhea. denies: Abdominal Pain : denies: Dysuria, Frequency PD PAST MEDICAL HISTORY - Past Medical History Cardiovascular: None Respiratory: None Neuro: None Endocrine/Autoimmune: None GI: None FRESCO ARTIST: None : None HEENT: None Psych: None Musculoskeletal: None Derm: None - Past Surgical History Past Surgical History: No - Present Medications Home Medications: Ambulatory Orders Medication Instructions Recorded Confirmed Metoclopramide [Reglan] 10 mg PO Q6H PRN #14 tablet 11/21/20 Ondansetron Odt [Zofran] 4 mg TL Q6H PRN #10 tablet 11/21/20 Famotidine [Acid-Pep] 20 mg PO DAILY #60 tablet 04/15/21 Ondansetron Odt [Zofran] 4 mg TL Q6H PRN #14 tablet 08/07/21 - Allergies Allergies/Adverse Reactions: Allergies Allergy/AdvReac Type Severity Reaction Status Date / Time Penicillins Allergy Anaphylaxis Verified 08/06/21 22:55 - Social History Does the pt smoke?: No Smoking Status: Never smoker Does the pt drink ETOH?: No Does the pt have substance abuse?: No - Immunizations Immunizations are current?: Yes - POLST Patient has POLST: No PD ED PE NORMAL - Vitals Vital signs reviewed: Yes - General General: Alert and oriented X 3, No acute distress, Well developed/nourished - HEENT HEENT: Moist mucous membranes - Neck Neck: Supple, no meningeal sign - Cardiac Cardiac: RRR, No murmur - Respiratory Respiratory: No respiratory distress, Clear bilaterally - Abdomen Abdomen: Normal bowel sounds, Soft, Non tender, Non distended Results - Vitals Vitals: Oxygen O2 Source Room air - Labs Labs: Laboratory Tests 08/06/21 08/06/21 08/07/21 23:45 23:45 00:07 WBC 10.2 RBC 4.47 Hgb 13.5 Hct 40.6 MCV 90.8 MCH 30.2 MCHC 33.3 RDW 12.3 Plt Count 234 MPV 9.7 Neut # (Auto) 9.2 H Lymph # (Auto) 0.5 L Pennington # (Auto) 0.5 Eos # (Auto) 0.1 Baso # (Auto) 0.0 Absolute Nucleated RBC 0.00 Nucleated RBC % 0.0 Sodium 139 Potassium 4.3 Chloride 108 Carbon Dioxide 23 Anion Gap 8.0 BUN 14 Creatinine 0.7 Estimated GFR (MDRD) 102 Glucose 109 H Calcium 8.1 L Total Bilirubin 0.6 AST 22 ALT 26 Alkaline Phosphatase 68 Total Protein 6.6 L Albumin 3.7 Globulin 2.9 Albumin/Globulin Ratio 1.3 Lipase 28 Nasal Adenovirus (PCR) NOT DETECTED Nasal B. parapertussis DNA (PCR) NOT DETECTED Nasal Coronavir 229E PCR NOT DETECTED Nasal Coronavir HKU1 PCR NOT DETECTED Nasal Coronavir NL63 PCR NOT DETECTED Nasal Coronavir OC43 PCR NOT DETECTED Nasal Enterovir/Rhinovir PCR NOT DETECTED Nasal Influenza B PCR NOT DETECTED Nasal Influenza A PCR NOT DETECTED Nasal Parainfluen 1 PCR NOT DETECTED Nasal Parainfluen 2 PCR NOT DETECTED Nasal Parainfluen 3 PCR NOT DETECTED Nasal Parainfluen 4 PCR NOT DETECTED Nasal RSV (PCR) NOT DETECTED Nasal B.pertussis DNA PCR NOT DETECTED Nasal C.pneumoniae (PCR) NOT DETECTED Lonny Human Metapneumo PCR NOT DETECTED Nasal M.pneumoniae (PCR) NOT DETECTED Nasal SARS-CoV-2 (PCR) NOT DETECTED PD MEDICAL DECISION MAKING - ED course Complexity details: reviewed results, re-evaluated patient, considered differential, d/w patient ED course: no significant/concerning findings on blood tests (CBC, ER abdominal panel), and respiratory panel including COVID is negative. She is given 2 liters NS, 2 doses of IV zofran 4mg/dose, and 4mg PO loperamide. Results d/w patient and on reevaluation, she reports feeling better and feeling well enough to be discha rged home. Return precautions discussed. Departure - Departure Disposition: 01 Home, Self Care Clinical Impression: Nausea vomiting and diarrhea Condition: Good Instructions: ED Diet Vomiting Diarrhea, ED Vomiting Diarrhea Nonspecific Ad Prescriptions: Ondansetron Odt [Zofran] 4 mg TL Q6H PRN #14 tablet PRN Reason: Nausea / Vomiting Comments: A prescription for ondansetron (anti-nausea medication) has been electronically submitted to [facility] pharmacy in [place] Discharge Date/Time: 08/07/21 03:03
[2021-08-07] LABS: ALBUMIN 3.7 g/dL (3.2-5.5); ALBUMIN/GLOBULIN RATIO 1.3 (1.0-2.2); BILIRUBIN,TOTAL 0.6 mg/dL (0.2-1.0); CALCIUM 8.1 mg/dL (8.5-10.3); CREATININE 0.7 mg/dL (0.4-1.0); POTASSIUM 4.3 mmol/L (3.5-5.0); TOTAL PROTEIN 6.6 g/dL (6.7-8.2)
[2021-08-07] MEDS ORDERED: ONDANSETRON 4 MG/2 ML VIAL IVP STA (00:43)
[2021-08-07 01:07] LABS: B. PARAPERTUSSIS- RESP PCR PAN NOT DETECTED; B. PERTUSSIS- RESP PCR PANEL NOT DETECTED; C. PNEUMONIAE- RESP PCR PANEL NOT DETECTED; CORONAVIRUS 229E-RESP PCR NOT DETECTED; CORONAVIRUS HKU1-RESP PCR NOT DETECTED; CORONAVIRUS NL63-RESP PCR NOT DETECTED; CORONAVIRUS OC43-RESP PCR NOT DETECTED; HUMAN METAPNEUMOVIRUS NOT DETECTED; INFLUENZA A- RESP PCR PANEL NOT DETECTED; INFLUENZA B - RESP PCR PANEL NOT DETECTED; M. PNEUMONIAE- RESP PCR PANEL NOT DETECTED; PARAINFLUENZA VIRUS 1 NOT DETECTED; PARAINFLUENZA VIRUS 2 NOT DETECTED; PARAINFLUENZA VIRUS 3 NOT DETECTED; PARAINFLUENZA VIRUS 4 NOT DETECTED; RHINOVIRUS/ENTEROVIRUS NOT DETECTED; RSV- RESP PCR PANEL NOT DETECTED; SARS-CoV-2 -RESP PCR PANEL NOT DETECTED
[2021-08-07] MEDS ORDERED: LOPERAMIDE 2 MG CAPSULE PO STA (02:45)
[2021-08-07 02:53] VITALS: BP 93/47
== END 2021-08-07 03:03 | disposition home or self-care (01) ==
LOC: EDUNIT# → ED 22:46
DX: R11.2 Nausea with vomiting, unspecified (principal); R19.7 Diarrhea, unspecified; Z20.822 Contact with and (suspected) exposure to COVID-19
CPT/HCPCS: 0202U; 36415; 80053; 83690; 85025; 96361; 96374; 99283

== ENCOUNTER 2022-05-09 12:03 | Outpatient (CLI) | payer OTHER ==
--- NOTE | 2022-05-09 12:43 | XRAY Report ---
PROCEDURE: Ankle 3 View LT INDICATIONS: SPRAIN OF UNSPECIFIED LIGAMENT LT ANKLE TECHNIQUE: 3 views of the ankle were acquired. COMPARISON: None FINDINGS: Bones: No fractures or dislocations. Ankle mortise is normally aligned. No suspicious bony lesions . Soft tissues: Lateral malleolar edema is present. Achilles tendon appears normal. IMPRESSION: Lateral malleolar edema. No visualized acute fracture or dislocation. However, occult in jury cannot be excluded. Recommend short interval imaging follow-up in 7-10 days as clinically indica liliane for additional evaluation. Reviewed by: Eulalia Foy MD on 05/09/2022 12:42 PM PDT Approved by: Eulalia Foy MD on 05/09/2022 12:42 PM PDT Station ID: [id number]
== END 2022-05-09 12:04 | disposition home or self-care (01) ==
LOC: DI 12:03
PROVIDERS: ATTEND Physician Assistant Medical
DX: R60.0 Localized edema (principal); S93.402A Sprain of unspecified ligament of left ankle, initial encounter

== ENCOUNTER 2022-08-17 08:20 | Outpatient (CLI) | payer OTHER ==
--- NOTE | 2022-08-17 11:39 | XRAY Report ---
PROCEDURE: Chest 2 View X-Ray INDICATIONS: COUGH TECHNIQUE: 2 views of the chest were acquired. COMPARISON: None FINDINGS: Surgical changes and devices: None. Lungs and pleura: No pleural effusions or pneumothorax. Lungs are clear. Mediastinum: Mediastinal contours are normal. Heart size is normal. Bones and chest wall: No suspicious bony abnormalities. Soft tissues appear unremarkable. IMPRESSION: Chest without acute cardiopulmonary abnormalities or focal airspace disease. Reviewed by: Jeffrey Guadalupe MD on 08/17/2022 11:37 AM [facility] Approved by: Jeffrey Guadalupe MD on 08/17/2022 11:37 AM [facility] Station ID: [id number]
== END 2022-08-17 23:59 | disposition home or self-care (01) ==
LOC: DI.N 08:20
PROVIDERS: ATTEND Physician Assistant
DX: R05.9 Cough, unspecified (principal)

== ENCOUNTER 2023-05-05 16:22 | Emergency (ER) | payer OTHER ==
[2023-05-05] MEDS ORDERED: SODIUM CHLORIDE 0.9% 1,000 ML IV STA (16:53)
[2023-05-05] MEDS ORDERED: ONDANSETRON 4 MG/2 ML VIAL IVP STA (16:53)
[2023-05-05 17:16] LABS: BASOPHILS % (AUTO) 0.2 %; EOSINOPHILS # (AUTO) 0.1 10^3/uL (0.0-0.7); EOSINOPHILS % (AUTO) 0.7 %; HCT - HEMATOCRIT 38.8 % (37.0-47.0); HGB - HEMOGLOBIN 13.3 g/dL (12.0-16.0); LYMPHOCYTES # (AUTO) 2.5 10^3/uL (1.5-3.5); LYMPHOCYTES % (AUTO) 20.6 %; MEAN CORPUSCULAR HGB CONC 34.3 g/dL (32.0-36.0); MEAN CORPUSCULAR VOLUME 87.6 fL (81.0-99.0); MEAN PLATELET VOLUME 10.1 fL (7.9-10.8); MONOCYTES # (AUTO) 0.6 10^3/uL (0.0-1.0); MONOCYTES % (AUTO) 5.2 %; NEUTROPHILS # (AUTO) 8.8 10^3/uL (1.5-6.6); NEUTROPHILS % (AUTO) 72.9 %; PLT - PLATELET COUNT 294 10^3/uL (130-450); RED BLOOD COUNT 4.43 10^6/uL (4.20-5.40); RED CELL DISTRIBUTION WIDTH 13.5 % (12.0-15.0); WHITE BLOOD COUNT 12.1 x10^3/uL (4.8-10.8)
[2023-05-05 17:35] LABS: CALCIUM 9.3 mg/dL (8.5-10.3); CREATININE 0.6 mg/dL (0.6-1.3)
[2023-05-06 02:07] LABS: HBsAG SCREEN Negative (Negative)
[2023-05-06 06:11] LABS: RPR Non Reactive (Non Reactive)
[2023-05-06 08:10] LABS: HIV SCREEN 4TH GENERATION Non Reactive (Non Reactive)
[2023-05-06 09:09] LABS: HCV AB Non Reactive (Non Reactive)
[2023-05-06 10:58] VITALS: BP 124/70; O2SAT 99
[2023-05-06 12:10] LABS: VARICELLA-ZOSTER AB IGG 286 index (Immune >165)
== END 2023-05-05 19:30 | disposition left against medical advice (07) ==
LOC: ED 16:22
DX: Z53.21 Procedure and treatment not carried out due to patient leaving prior to being seen by health care provider (principal)
CPT/HCPCS: 36415; 80048; 85025; 86592; 86762; 86787; 86803; 86850; 86900; 86901; 87340; 87389

== ENCOUNTER 2023-06-23 12:49 | Outpatient (CLI) | payer OTHER ==
--- NOTE | 2023-06-23 14:30 | Ultrasound Report ---
PROCEDURE: OB F/U or Repeat INDICATIONS: SUPERVISION OF OUTSIDE/PRIOR DATING DATA: Last menstrual period (LMP): 01/09/2023. LMP-based estimated date of delivery (ASH): 10/16/2022. First dating scan (date and location): 05/27/2023. Estimated date of delivery (ASH) from first dating scan: 10/16/2023. The below data below was generated using the clinical ASH of 10/16/2023 TECHNIQUE: Real-time scanning was performed of the fetus, with image documentation and biometric measurements. Endovaginal scanning: Not performed. COMPARISON: Ultrasound 05/27/2023 FINDINGS: General: A single living intrauterine gestation is present. Presentation: Transverse Placenta: Placental position is posterior, without previa. Amniotic fluid index: 16.9 cm, within normal limits for gestational age. heart rate: 126 beats per minute. Maternal cervical canal: 5.3 cm long; normal length is 2.5 cm or more. Estimated gestational age from initial scan: 23 weeks and 4 days Limited anatomic scan: Normal appearance of the heart including the four-chamber view, RVOT and LVOT. IMPRESSION: 1.Normal appearance of the heart. 2.Single live intrauterine consistent with 23 weeks and 4 days. Reviewed by: Graham Wade MD on 06/23/2023 2:29 PM PDT Approved by: Graham Wade MD on 06/23/2023 2:29 PM PDT Station ID: [id number]
== END 2023-06-23 12:50 | disposition home or self-care (01) ==
LOC: DI 12:49
PROVIDERS: ATTEND Nurse Practitioner Obstetrics & Gynecology
DX: Z34.02 Encounter for supervision of normal first pregnancy, second trimester (principal); Z36.89 Encounter for other specified antenatal screening

== ENCOUNTER 2023-09-01 16:51 | Outpatient (CLI) | payer OTHER ==
[2023-09-01] MEDS ORDERED: LACTATED RINGERS 1,000 ML IV ONE (17:17)
[2023-09-01] MEDS ORDERED: ONDANSETRON 4 MG/2 ML VIAL IVP PRN (17:21)
[2023-09-01] MEDS ORDERED: FAMOTIDINE 20 MG TABLET PO SCH (18:00)
[2023-09-01 18:30] VITALS: O2SAT 100
[2023-09-01 19:26] VITALS: BP 115/66
--- NOTE | 2023-09-05 14:09 | PROVIDER PROGRESS NOTE ---
- HPI Chief Complaint: GI symptoms Current : Current EDU 10/17/23 Gestation 33 Weeks and 3 Days 4 Para 1 Vital Signs Temperature 37.4 C 09/01/23 17:01 Heart Rate 96 09/01/23 17:01 Respiratory Rate 22 09/01/23 17:01 Blood Pressure 128/68 09/01/23 17:01 O2 Saturation 100 09/01/23 17:01 Temperature 37.4 C 09/01/23 17:08 Heart Rate 90 09/01/23 19:10 Respiratory Rate 18 09/01/23 19:10 Blood Pressure 115/66 09/01/23 19:10 O2 Saturation 100 09/01/23 19:10 If not protocol: Oxygen Flow, liters/minute - Procedures OB Procedure Performed: NST Diagnosis/Indication for NST: Other NST Procedure: NST Procedure Start Date 09/01/23 Start Time 17:01 Stop Time 17:53 Vibroacoustic Stimulation Used No Patient States Movement Yes - Plan Plan: Ky is a 28yo @ 33.4wks gestation who presents to [facility] with c/o lower abdominal pain. She has suffered from hyperemesis gravidarum for the duration of her . She states the past several days have been difficult for her and she is both coughing and vomiting. She denies vaginal bleeding or leakage of fluid. She states she does not feel like her pain is contraction pain but she wants to be sure. She reports +FM. She states she has had diarrhea for the past 24 hours as well. NST reactive. FHR baseline 130s, moderate variability, + accels, no decels No contractions appreciated via tocometry Pt requests IV hydration secondary to recurrent vomiting and diarrhea and I am in agreement with this request. 1 Liter LR administered over 1 hour and pt released home with precautions. She has emergency contact number. She denies further questions or concerns at this time. F/u for regularly scheduled return OB visit or sooner PRN. Pt verbalized understanding and agrees to above plan. FINAL DIAGNOSIS: Lower abdominal pain in Diarrhea Hyperemesis gravidarum Dehydration
== END 2023-09-01 19:15 | disposition home or self-care (01) ==
LOC: WFO 16:51 → FBP 16:53 → WFO 19:15
PROVIDERS: ATTEND Nurse Practitioner Obstetrics & Gynecology
DX: O99.891 Other specified diseases and conditions complicating pregnancy (principal); R10.30 Lower abdominal pain, unspecified; R19.7 Diarrhea, unspecified; O21.1 Hyperemesis gravidarum with metabolic disturbance; Z3A.33 33 weeks gestation of pregnancy
CPT/HCPCS: 59025; 96361; 96374; 99214; A9270; J7120; 96360; 96372

== ENCOUNTER 2023-09-07 16:57 | Outpatient (CLI) | payer OTHER ==
[2023-09-07 17:12] VITALS: BP 111/76
[2023-09-07] MEDS ORDERED: METOCLOPRAMIDE 10 MG/2 ML VIAL IVP ONE (17:32)
[2023-09-07] MEDS ORDERED: LACTATED RINGERS 1,000 ML IV ONE (17:33)
--- NOTE | 2023-09-09 10:00 | PROVIDER PROGRESS NOTE ---
- HPI Chief Complaint: GI symptoms Current : Current EDU 10/17/23 Gestation 34 Weeks and 2 Days 4 Para 1 Vital Signs Temperature 36.5 C 09/07/23 17:09 Heart Rate 98 09/07/23 17:09 Respiratory Rate 16 09/07/23 17:09 Blood Pressure 111/76 09/07/23 17:09 Temperature 36.5 C 09/07/23 17:09 Heart Rate 98 09/07/23 17:09 Respiratory Rate 16 09/07/23 17:09 Blood Pressure 111/76 09/07/23 17:09 O2 Saturation If not protocol: Oxygen Flow, liters/minute - Procedures OB Procedure Performed: NST Diagnosis/Indication for NST: Decreased movement NST Procedure: NST Procedure Start Date 09/07/23 Start Time 17:06 Stop Time 17:44 Vibroacoustic Stimulation Used No Patient States Movement Yes: decreased today - Plan Plan: Ky is a 28yo who presents today with c/o vomiting and dizziness. She has suffered from hyperemesis gravidarum for the duration of her and has intermittently required IV hydration for dehydration. She states over the past week she has not felt dehydrated but had to take a car ride earlier today which induced significant vomiting and was accompanied by dizziness and lightheadedness. In addition she felt the baby's movements were decreased which she states is not all that uncommon during her times of excessive vomiting but accompanied by the dizziness made her and her feel like she should present for evaluation. She denies vaginal bleeding or leakage of fluid. She denies contractions. FHR baseline 130s, moderate variability, + accels, no decels No contractions appreciated via tocometry 1 liter LR initiated over 1 hour Reglan administered and pt reports improved symptoms Pt released home with precautions. Pt has emergency contact number. We reviewed warning s/sx and when to present. Follow for routine visit as scheduled or sooner PRN. Pt verbalized understanding and agrees to above plan. She denies further questions or concerns at this time. FINAL DIAGNOSIS: Dizziness and lightheadedness Hyperemesis gravidarum
== END 2023-09-07 20:20 | disposition home or self-care (01) ==
LOC: WFO 16:57 → FBP 16:58 → WFO 20:20
PROVIDERS: ATTEND Nurse Practitioner Obstetrics & Gynecology
DX: O99.891 Other specified diseases and conditions complicating pregnancy (principal); R42 Dizziness and giddiness; O21.0 Mild hyperemesis gravidarum; Z3A.34 34 weeks gestation of pregnancy
CPT/HCPCS: 96361; 96374; 99214; J2765; J7120

== ENCOUNTER 2023-10-09 11:15 | Inpatient (IN) | payer OTHER ==
[2023-10-09 12:04] LABS: RUPTURE OF MEMBRANES PLUS NEGATIVE (NEGATIVE)
[2023-10-09] MEDS ORDERED: LACTATED RINGERS 1,000 ML IV PRN (12:43)
[2023-10-09] MEDS ORDERED: TRANEXAMIC ACID IN NACL 1,000 MG/100 ML BAG IV PRN (12:43)
[2023-10-09] MEDS ORDERED: TERBUTALINE 1 MG/ML VIAL SUBQ PRN (12:43)
[2023-10-09] MEDS ORDERED: METHYLERGONOVINE 0.2 MG/ML VIAL IM PRN (12:43)
[2023-10-09] MEDS ORDERED: SODIUM CHLORIDE FLUSH 0.9% 10 ML SYRINGE IVP PRN (12:43)
[2023-10-09] MEDS ORDERED: lidocaine 1% 20 ML MDV ID PRN (12:43)
[2023-10-09] MEDS ORDERED: CARBOPROST TROMETHAMINE 250 MCG/ML AMP IM PRN (12:43)
[2023-10-09] MEDS ORDERED: hydrALAZINE INJ 20 MG/ML VIAL IVP PRN ×2 (12:43)
[2023-10-09] MEDS ORDERED: LABETALOL 20 MG/4 ML SYRINGE IVP PRN ×3 (12:43)
[2023-10-09] MEDS ORDERED: OXYTOCIN 10 UNIT/ML VIAL IM PRN (12:43)
[2023-10-09] MEDS ORDERED: fentaNYL 100 MCG/2 ML VIAL IVP PRN (12:43)
[2023-10-09] MEDS ORDERED: NIFEdipine 10 MG CAPSULE PO PRN (12:43)
[2023-10-09] MEDS ORDERED: miSOPROStoL 200 MCG TABLET PR PRN (12:43)
[2023-10-09] MEDS ORDERED: OXYTOCIN/SODIUM CHLORIDE 500 ML IV PRN (12:43)
[2023-10-09] MEDS ORDERED: miSOPROStoL 200 MCG TABLET BC PRN (12:43)
--- NOTE | 2023-10-09 12:43 | PROVIDER PROGRESS NOTE ---
- HPI Chief Complaint: Labor Check Current : Current EDU 10/17/23 Gestation 38 Weeks and 6 Days 4 Para 1 Vital Signs Temperature 36.5 C 10/09/23 11:37 Heart Rate 107 H 10/09/23 11:37 Respiratory Rate 20 10/09/23 11:37 Blood Pressure 126/74 10/09/23 11:37 Temperature 36.5 C 10/09/23 11:39 Heart Rate 95 10/09/23 11:39 Respiratory Rate 10/09/23 11:39 Blood Pressure 126/74 10/09/23 11:39 O2 Saturation If not protocol: Oxygen Flow, liters/minute - Procedures OB Procedure Performed: NST Diagnosis/Indication for NST: Other NST Procedure: NST Procedure Start Date 10/09/23 Start Time 11:30 Stop Time 12:10 Vibroacoustic Stimulation Used No Patient States Movement Yes - Plan Plan: Ky presents to [facility] with c/o contractions and leakage of clear vaginal fluid that began at 0830 this morning and has persistently continued to leak clear fluid since that time. She reports the contractions have gradually increased in frequency and intensity since that time. She denies vaginal bleeding and reports +FM. She is supported by her partner Heath and friend Sharon. NST reactive. FHR 140s, moderate variability, + accels, no decels Contractions palpate moderate every 2-4 minutes with soft resting tone Grossly ruptured membranes. Nitrizine positive Assessment: 28yo @ 38.6wks gestation Early labor Plan: Admit to [facility] for expectant management now.
[2023-10-09] MEDS ORDERED: ONDANSETRON 4 MG/2 ML VIAL IVP PRN ×2 (12:46→16:16)
--- NOTE | 2023-10-09 12:49 | HISTORY & PHYSICAL EXAMINATION ---
Admit History - Visit Reason Visit Reason: Contractions, Membranes rupture - : 4 Parity: 1 Premature: 0 Ectopic: 0 : 2 Care: positive: [facility] Risk/History: positive: None Complications This : positive: None Smoking Status: Never smoker - Mother's Labs Mother's Blood Type: positive: A Mother's RH: positive: Negative GBS: positive: Group B Step Negative Rubella Status: positive: Non-immune - HPI Current EDU 10/17/23 Gestation 38 Weeks and 6 Days 4 Para 1 Vital Signs Temperature 36.5 C 10/09/23 11:37 Heart Rate 107 H 10/09/23 11:37 Respiratory Rate 20 10/09/23 11:37 Blood Pressure 126/74 10/09/23 11:37 Temperature 36.5 C 10/09/23 11:39 Heart Rate 95 10/09/23 11:39 Respiratory Rate 20 10/09/23 11:39 Blood Pressure 126/74 10/09/23 11:39 O2 Saturation If not protocol: Oxygen Flow, liters/minute - NST Procedure NST Procedure Start Date 10/09/23 Start Time 11:30 Stop Time 12:10 Vibroacoustic Stimulation Used No Patient States Movement Yes Meds/Allgy - Home Medications Home Medications: Ambulatory Orders Medication Instructions Recorded Confirmed Ondansetron Odt [Zofran] 4 mg TL Q6H PRN #10 tablet 03/16/23 03/23/23 Doxylamine Succinate [Unisom Sleep 25 mg PO TID #30 tablet 03/23/23 Aid] Ondansetron Odt [Zofran] 4 mg TL Q6H PRN #20 tablet 03/23/23 Prochlorperazine Supp [Compazine 25 mg HI QID PRN #8 supp 03/23/23 Supp] Pyridoxine HCl (Vitamin B6) 25 mg PO BID #60 tablet 03/23/23 [Vitamin B-6] Scopolamine Patch [Transderm-Scop] 1 each TOP Q3D #2 patch 03/23/23 - Allergies Allergies/Adverse Reactions: Allergies Allergy/AdvReac Type Severity Reaction Status Date / Time Penicillins Allergy Anaphylaxis Verified 05/05/23 16:25 Review of Systems - Constitutional Constitutional: denies: Fever, Chills, Malaise - Eyes Eyes: denies: Blurred vision, Spots in vision, Dipolpia - Cardiovascular Cariovascular: denies: Irregular heart rate, Palpitations, Chest pain - Respiratory Respiratory: denies: Cough, Wheezing, SOB at rest - Gastrointestinal Gastrointestinal: denies: Constipation, Diarrhea, Nausea, Vomiting - Genitourinary Genitourinary: denies: Dysuria, Frequency - Integumentary Integumentary: denies: Rash, Pruritis - Neurological Neurological: denies: Headache - Psychiatric Psychiatric: denies: Depression, Anxiety - Hematologic/Lymphatic Hematologic/Lymphatic: denies: Anemia Physical - Abdominal Exam Vital Signs: Temp Pulse Resp BP Pulse Ox O2 Flow Rate 36.5 C 95 20 126/74 10/09/23 11:39 10/09/23 11:39 10/09/23 11:39 10/09/23 11:39 Contraction Frequency (min/apart): 2-4 Contraction Intensity: positive: Moderate Uterine Resting Tone: positive: Soft - Monitoring Heart Rate Baseline: 140 Strip Review: positive: Category I - Presentation Presentation: positive: Vertex - Vaginal Exam Membranes: positive: Membranes ruptured Dilation (in cm): deferred - Speculum Exam Speculum Exam Performed: positive: No Findings: positive: Gross leak, Nitrazine Plan for Labor - Plan For Labor I expect patient to be DC'd or transferred within 96 hours.: Yes Plan for Labor: HPI: This 28yo @ 38.6wks gestation by LMP c/w 10.3wk U/S presents to [facility] with c/o vaginal leakage of clear fluid which started at 0830 this morning and has been followed by consistent contractions. She denies vaginal bleeding and she reports +FM. She is noted to be grossly ruptured with multiple pads saturated with clear vaginal fluid and nitrizine positive. SVE was deferred. She has been a patient of [facility] for the duration of her which has been complicated by hyperemesis gravidarum and has required multiple IV infusions for hydration. She has gained 42lbs in her and secondary to hyperemesis she declined glucola screening for gestational diabetes at 28wks gestation. She did track her blood glucose for 2 weeks and her values were reportedly all WNL. She will be admitted to [facility] for expectant management. 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 SAB x1. Last pap 2017 WNL, unsure if she had a pap smear . Denies history of gonorrhea, chlamydia, genital herpes, oral herpes or any other STI. Sexual partner does NOT have HSV (oral or genital). Medical Hx: no significant Surgical Hx: none Social Hx: Monogamous with male partner Stopped drinking alcohol due to . Denies current use of tobacco, marijuana or other recreational drugs. Reports that she is safe in current relationship. Family Hx: Denies family history of congenital anomalies, Cystic Fibrosis or chromosomal abnormalities. Allergies: Penicillin - hives Medications: Prochlorperzine suppositories PRN; Scopalamine patch PRN; Doxylamine tid; Pyridoxine (B6) tid; Zofran 4mg q 6 hrs course: A negative, antibody negative Rubella NON-IMMUNE, varicella immune Hep B neg, Hep C neg HIV non-reactive, RPR non-reactive Initial U/S @ 10.3wks c/w LMP dating NIPS - declined FAS WNL with the exception of incomplete visualization of cardiac structures and RVOT. Posterior placenta, no previa. Size c/w dating (EFW 51%tile). 3VC. Completion FAS for heart WNL. Glucola - declined Tdap - declined Influenza - declined COVID-19 -declined RSV- declined RHOGAM 08/27/2023 GBS negative Physical exam: Normocephalic, atraumatic Heart RRR w/o M/G/R Lungs CTAB Abdomen gravid, soft, nontender. EFW 3500g FHR baseline 140s, moderate variability, + accels, no decels Contractions palpate moderate every 2-4 minutes with soft resting tone SVE deferred Bilateral LE's trace edema Assessment: 28yo @ 38.6wks gestation by LMP c/w 10.3wk U/S Early labor Vaginal leakage of fluid GBS negative FHR Category I Plan: Admit to [facility] for expectant management. Continuous monitoring. Jacuzzi PRN. Nitrous oxide PRN. Epidural per maternal request. Anticipate .
[2023-10-09] MEDS ORDERED: SODIUM CHLORIDE FLUSH 0.9% 10 ML SYRINGE IVP SCH (13:00)
[2023-10-09 13:07] LABS: BASOPHILS % (AUTO) 0.2 %; EOSINOPHILS # (AUTO) 0.1 10^3/uL (0.0-0.7); EOSINOPHILS % (AUTO) 0.8 %; HCT - HEMATOCRIT 34.8 % (37.0-47.0); LYMPHOCYTES # (AUTO) 1.8 10^3/uL (1.5-3.5); LYMPHOCYTES % (AUTO) 17.7 %; MEAN CORPUSCULAR HEMOGLOBIN 26.3 pg (27.0-31.0); MEAN CORPUSCULAR HGB CONC 31.6 g/dL (32.0-36.0); MEAN CORPUSCULAR VOLUME 83.1 fL (81.0-99.0); MEAN PLATELET VOLUME 10.5 fL (7.9-10.8); MONOCYTES # (AUTO) 0.5 10^3/uL (0.0-1.0); MONOCYTES % (AUTO) 4.6 %; NEUTROPHILS # (AUTO) 7.9 10^3/uL (1.5-6.6); NEUTROPHILS % (AUTO) 76.1 %; PLT - PLATELET COUNT 286 10^3/uL (130-450); RED BLOOD COUNT 4.19 10^6/uL (4.20-5.40); RED CELL DISTRIBUTION WIDTH 14.1 % (12.0-15.0); WHITE BLOOD COUNT 10.4 x10^3/uL (4.8-10.8)
[2023-10-09] MEDS ORDERED: ROPIVACAINE 0.2% 200 MG/100 ML BAG EP ONE (13:39)
[2023-10-09] MEDS ORDERED: LIDOCAINE 2%-EPI 1:100000 20 ML MDV ONE (13:39)
[2023-10-09] MEDS ORDERED: lidocaine 1% 20 ML MDV ONE (14:16)
--- NOTE | 2023-10-09 16:13 | ANESTHESIA ---
Pre-Anesthesia VS, & Labs - Diagnosis LABOR EPIDURal - Procedure LABOR EPIDURAL Vital Signs: Temp Pulse Resp BP Pulse Ox O2 Flow Rate 36.5 C 95 20 126/74 10/09/23 13:00 10/09/23 11:39 10/09/23 11:39 10/09/23 11:39 Height: 5 ft 4 in Weight (kg): 115.212 kg Body Mass Index: 43.6 BMI Classification: Morbidly Obese - Is Patient ?: Yes - Lab Results Current Lab Results: Laboratory Tests 10/09/23 13:00: WBC 10.4, RBC 4.19 L, Hgb 11.0 L, Hct 34.8 L, MCV 83.1, MCH 26.3 L, MCHC 31.6 L, RDW 14.1, Plt Count 286, MPV 10.5, Neut # (Auto) 7.9 H, Lymph # (Auto) 1.8, Glenn # (Auto) 0.5, Eos # (Auto) 0.1, Baso # (Auto) 0.0, Absolute Nucleated RBC 0.00, Nucleated RBC % 0.0 10/09/23 13:00: Blood Type A NEGATIVE, Antibody Screen POSITIVE Fish Bones: 10/09/23 13:00 Home Medications and Allergies Home Medications: Ambulatory Orders hydrOXYzine pamoate [Hydroxyzine Pamoate] 50 mg PO QPM PRN 10/09/23 Active Medications Carboprost Tromethamine (Carboprost Tromethamine 250 Mcg/Ml Amp) 250 mcg IM .ONCE PRN PRN Reason: Hemorrhage Fentanyl (Fentanyl 100 Mcg/2 Ml Vial) 50 mcg IVP Q1H PRN PRN Reason: Severe Pain (score 7-10) Hydralazine HCl (Hydralazine Inj 20 Mg/Ml Vial) 5 - 10 mg IVP Q20M PRN; Protocol PRN Reason: SBP> or= 160 OR DBP> or= 110 Hydralazine HCl (Hydralazine Inj 20 Mg/Ml Vial) 10 mg IVP .ONCE PRN; Protocol PRN Reason: SBP> or= 160 OR DBP> or= 110 Lactated Ringer's (Lr) 500 mls @ 999 mls/hr IV PRN PRN PRN Reason: PER PHYSICIAN ORDER Oxytocin/Sodium Chloride (Pitocin/Sodium Chloride) 500 mls @ 999 mls/hr IV PRN PRN; Protocol PRN Reason: POST- HEMORR PREVENTION Tranexamic Acid (Tranexamic 1,000 Mg/100ml-Nacl) 1,000 mg in 100 mls @ 600 mls/hr IV Q30M PRN PRN Reason: EBL >1200mL and within 3hr Labetalol HCl (Labetalol 20 Mg/4 Ml Syringe) 20 - 80 mg IVP Q10M PRN; Protocol PRN Reason: SBP> or= 160 OR DBP> or= 110 Labetalol HCl (Labetalol 20 Mg/4 Ml Syringe) 20 mg IVP .ONCE PRN; Protocol PRN Reason: SBP> or= 160 OR DBP> or= 110 Labetalol HCl (Labetalol 20 Mg/4 Ml Syringe) 20 - 40 mg IVP Q10M PRN; Protocol PRN Reason: SBP> or= 160 OR DBP> or= 110 Lidocaine HCl (Lidocaine 1% 20 Ml Mdv) 20 ml ID .ONCE PRN PRN Reason: PERINEAL REPAIR Stop: 10/12/23 12:44 Methylergonovine Maleate (Methylergonovine 0.2 Mg/Ml Vial) 0.2 mg IM .ONCE PRN PRN Reason: Hemorrhage Misoprostol (Misoprostol 200 Mcg Tablet) 600 mcg BC .ONCE PRN PRN Reason: Hemorrhage Misoprostol (Misoprostol 200 Mcg Tablet) 800 mcg HI .ONCE PRN PRN Reason: Hemorrhage Nifedipine (Nifedipine 10 Mg Capsule) 10 - 20 mg PO Q20M PRN; Protocol PRN Reason: SBP> or= 160 OR DBP> or= 110 Ondansetron HCl (Ondansetron 4 Mg/2 Ml Vial) 4 mg IVP Q4HR PRN PRN Reason: Nausea / Vomiting Oxytocin (Oxytocin 10 Unit/Ml Vial) 10 unit IM .ONCE PRN PRN Reason: Step One if no IV access. Sodium Chloride (Sodium Chloride Flush 0.9% 10 Ml Syringe) 10 ml IVP PRN PRN PRN Reason: NEEDED PER PROVIDER ORDERS Sodium Chloride (Sodium Chloride Flush 0.9% 10 Ml Syringe) 10 ml IVP Q8H TYE Terbutaline Sulfate (Terbutaline 1 Mg/Ml Vial) 0.25 mg SUBQ .ONCE PRN PRN Reason: Tachystole hydrOXYzine pamoate [Hydroxyzine Pamoate] 50 mg PO QPM PRN 10/09/23 Allergies/Adverse Reactions: Allergies Allergy/AdvReac Type Severity Reaction Status Date / Time Penicillins Allergy Anaphylaxis Verified 05/05/23 16:25 Anes History & Medical History - Anesthetic History Anesthesia Complications: reports: No previous complications Family history of Anesthesia Complications: Denies Family history of Malignant Hyperthermia: Denies - Medical History Cardiovascular: reports: None Pulmonary: reports: None Gastrointestinal: reports: None Urinary: reports: None Neuro: reports: None Musculoskeletal: reports: None Endocrine/Autoimmune: reports: None Blood Disorders: reports: None Skin: reports: None Smoking Status: Never smoker - Obstetrical History : 4 Parity: 1 Events: reports: None Complications: reports: None OB Anesthesia History: previous labor epiduraL W/O PROBLEMS Exam General: Alert Dental: WNL Mouth Openin Fingerbreadth Neck Mobility: Normal Mallampati classification: II Plan Anesthesia Type: Epidural Consent for Procedure(s) Verified and Reviewed: Yes Code Status: Attempt Resuscitation ASA classification: 1-Healthy patient Is this case an emergency?: No
[2023-10-09] MEDS ORDERED: NALOXONE 0.4 MG/ML VIAL IVP PRN (16:16)
[2023-10-09] MEDS ORDERED: ROPIVACAINE 0.2% 200 MG/100 ML BAG EP PRN (16:16)
[2023-10-09] MEDS ORDERED: NALBUPHINE 10 MG/ML AMP IVP PRN (16:16)
[2023-10-09] MEDS ORDERED: diphenhydrAMINE INJ 50 MG/ML VIAL IVP PRN (16:16)
[2023-10-09] MEDS ORDERED: METOCLOPRAMIDE 10 MG/2 ML VIAL IVP PRN (16:16)
[2023-10-09] MEDS ORDERED: LACTATED RINGERS 500 ML IV ONE (16:16)
[2023-10-09] MEDS ORDERED: ePHEDrine 50 MG/ML VIAL IVP PRN (16:16)
[2023-10-09] MEDS: OXYTOCIN/SODIUM CHLORIDE 500 ML IV SCH (16:58)
--- NOTE | 2023-10-09 20:13 | DELIVERY NOTE ---
Delivery Note - Labor Labor: positive: Spontaneous, Augmented by oxytocin - Delivery Method Delivery Method: positive: Spontaneous vaginal delivery - Presentation Presentation: positive: Vertex - Nuchal Cord Nuchal Cord: positive: Present, Reduced - Amniotic Fluid Description Amniotic Fluid Description: positive: Clear - Episiotomy Type Episiotomy Type: positive: None - Laceration Laceration: positive: None - Delivery Outcome Delivery Outcome: positive: Livebirth - [place] : positive: Placed in direct skin contact with mother, Bulb syringe, Stimulated, Warmed, Fosters used, Warmer used sex: positive: Male - Cord Cord: positive: 3 vessels - Placenta Placenta: positive: Intact, Spontaneous - Estimated Blood Loss Estimated Blood Loss (in cc): 200 - Post Delivery Events Post Delivery Events: positive: No post delivery events - Delivery Comments (Free Text/Narrative) Delivery Comments (Free Text/Narrative): Labor: This 28yo @ 38.6wks gestation by LMP c/w 10.3wk U/S [facility] with c/o vaginal leakage of clear fluid. She was noted to have grossly ruptured membranes. SVE 5/100/-2 and vertex. FHR pattern demonstrated Category I pattern through the majority of labor with intermittent periods of Category II however overall remained reassuring. Epidural was placed per maternal request. Pitocin was initiated for augmentation of labor for a maximum infusion rate of 7mU/mL. Normal labor course. Pt progressed to c/c/+1 1854. : Normal SVB of viable male infant on 10/09/2023 @ 1937. Nuchal cord x 2 was reduced. The was placed on maternal abdomen, stimulated, dried, and placed skin to skin. 's were 8/8 at 1 and 5 minutes respectively. Pitocin administered via IV for hemostasis. The umbilical cord was allowed to stop pulsating at which time it was doubly clamped by CNM and cut by FOB. Cord blood was obtained. Fundal massage and gentle cord traction applied for active management of the third stage. EBL 200mL. Fourth stage: Uterine fundus firm and there is no excessive bleeding. The perineum, vagina, and cervix were inspected and found to be intact. Skin to skin contact initiated. Family bonding well. Both mother and baby were left in stable condition.
[2023-10-09] MEDS ORDERED: HYDROCORTISONE 1% CREAM 28 GM TUBE PR PRN (20:16)
[2023-10-09] MEDS: ACETAMINOPHEN 500 MG TABLET PO SCH (20:39)
[2023-10-09] MEDS: FAMOTIDINE 20 MG/2 ML VIAL IVP SCH (20:40)
[2023-10-09] MEDS: DOCUSATE SODIUM 100 MG CAPSULE PO SCH (20:40)
[2023-10-09] MEDS: IBUPROFEN 800 MG TABLET PO SCH (20:40)
[2023-10-09] MEDS ORDERED: CALCIUM CARBONATE CHEW 500 MG TABLET PO SCH (21:00)
[2023-10-09] MEDS: WITCH HAZEL/GLYCERIN 1 PAD TOP PRN (21:34)
[2023-10-10] MEDS ORDERED: RHO(D) IMMUNE GLOBULIN 300 MCG SYRINGE IM ONE (08:38)
[2023-10-10] MEDS: oxyCODONE 5 MG TABLET PO ONE (08:58)
--- NOTE | 2023-10-10 12:52 | Discharge Plan ---
Discharge Plan Problem Reviewed?: Yes Disposition: Home, Self Care Condition: Good Diet: Regular Activity Restrictions: No Restrictions Shower Restrictions: No Driving Restrictions: No Weight Bearing: Full Weight Instruction Topics: Vaginal After No Smoking: If you smoke, Please STOP! Call for help. Follow-up with: Jaimee Calixto CNM, ARNP [Provider Admit Priv/Credential] - 1 Week
--- NOTE | 2023-10-10 13:02 | DISCHARGE SUMMARY ---
Discharge Summary Condition at Discharge: Good Discharge Disposition: 01 Home, Self Care - HOSPITAL COURSE Hospital Course: Date of Admission: 10/09/2023 Date of Discharge: 10/10/2023 Diagnosis on Admission: 1. 28yo @ 38.6wks gestation by LMP c/w 10.3wk U/S 2. Early labor 3. Vaginal leakage of fluid 4. GBS negative 5. FHR Category I Diagnosis on Discharge: 1. 28yo PPD#1 s/p TSVB viable male infant 2. Rh negative s/p Rhogam 3. 4. Normal recovery Brief History: She is a patient of [facility] who presented on 10/09/2023 with c/o vaginal leakage of clear fluid and contractions. Cervix was 5/100/-2. Pitocin was initiated for augmentation of labor for a maximum infusion rate of 7mU/mL. Epidural was placed per maternal request. Pt progressed to spontaneously deliver a viable male on 10/09/2023 @ 1937 following a 49 minute second stage and over intact perineum. EBL 200mL. She has been doing well in her course. She is ambulating a tolerating a regular diet. She is urinating without difficulty and her lochia is normal. Her pain is well controlled with oral medications. She will be discharged home today on day #1 with instructions to continue taking her vitamin while and to continue taking tylenol and Naproxen for pain management. She has received 1 dose of Rhogam secondary to Rh positive status. She intends to follow up with myself in 1 week for routine visit or sooner if needed. She has been given precautions to call if she has any worsening fevers, chills, abdominal pain, increased bleeding or foul smelling vaginal lochia. Physical exam: Normocephalic, atraumatic. Heart RRR w/o M/G/R, lungs CTAB, abdomen soft and nontender with fundus firm at U, perineum intact, light lochia rubra, bilateral LE's trace edema. - ALLERGIES Allergies/Adverse Reactions: Allergies Allergy/AdvReac Type Severity Reaction Status Date / Time Penicillins Allergy Anaphylaxis Verified 05/05/23 16:25 - MEDICATIONS Home Medications: Ambulatory Orders Medication Instructions Recorded Confirmed hydrOXYzine pamoate [Hydroxyzine 50 mg PO QPM PRN 10/09/23 10/09/23 Pamoate] - LABS Result Diagrams: 10/09/23 13:00
[2023-10-10] MEDS: NAPROXEN 250 MG TABLET PO PRN (14:14)
[2023-10-10 20:18] VITALS: BP 111/67; O2SAT 98
[2023-10-10] MEDS: RHO(D) IMMUNE GLOBULIN 300 MCG SYRINGE IM ONE (20:20)
--- NOTE | 2023-10-11 02:20 | Labor Flowsheet ---
Labor Flowsheet Datetime Report Generated by CPN: 10/11/2023 02:20 Datetime: 10/10/2023 20:15 VITAL SIGNS NBP Sys/Nena/Mean (mmHg): 111 : 67 : 76 Pulse: 83 Datetime: 10/09/2023 23:14 SpO2 (%): 97 Datetime: 10/09/2023 20:45 PAIN Pain Scale: 1 Pain Presence: Intermittent Datetime: 10/09/2023 19:54 Stage of : Recovery Temperature (C): 36.7 Temperature Route: Oral Datetime: 10/09/2023 19:52 LaborFlag: Labor Datetime: 10/09/2023 19:50 Anesthesia Comments: Epidural off Datetime: 10/09/2023 19:43 MEDICATIONS Pitocin (milliunits): Increased to @ 999 Datetime: 10/09/2023 19:37 Stage 2 Comments: male Datetime: 10/09/2023 19:25 Frequency (min): 2-3 Duration (sec): 60-70 ASSESSMENT A Monitor Mode: External US FHR Baseline Changes: No Baseline Change Variability: Moderate 6-25 bpm Accelerations: None Decelerations: Variable Category: Category II Comments: RN at bedside pt pushing Datetime: 10/09/2023 19:15 COMMUNICATION Communication: RN at Bedside; RN Reviewed Strip Datetime: 10/09/2023 19:10 UTERINE ACTIVITY Monitor Mode: External Quality: Strong Pattern: Normal: <= 5 Contractions in 10 Minutes Resting Tone (Palpate): Relaxed FHR Baseline Rate : 140 Datetime: 10/09/2023 18:58 Station: 0 Exam by: Marily, CNM Datetime: 10/09/2023 18:56 Medication Comments: per provider Datetime: 10/09/2023 18:54 VAGINAL EXAM Dilatation (cm): 10.0 Effacement (%): 100 I/O Interventions: Patel Discontinued Datetime: 10/09/2023 18:48 STAGE 2 Pushing Position: Pushing with Contractions Datetime: 10/09/2023 18:37 Patient Care Comments: semi mittal, lithotomy position Datetime: 10/09/2023 18:29 PATIENT CARE Patient Position/Activity: Right Lateral Datetime: 10/09/2023 15:01 Pain Goal: 4 Anesthesia Level Check: T10- Umbilicus Datetime: 10/09/2023 15:00 Contraction Comments: coupling Datetime: 10/09/2023 14:27 Epidural Procedure: Test Dose Datetime: 10/09/2023 13:57 ANESTHESIA Anesthesia Plans: Local Datetime: 10/09/2023 13:14 Vaginal Bleeding: None Cervix, Consistency: Soft Cervix, Position: Midposition Datetime: 09/07/2023 19:48 Membranes Ruptured Date/Time: 10/09/2023 08:30 Membranes Rupture Method: Spontaneous Amniotic Fluid Color: Clear Amniotic Fluid Amount: Moderate Amniotic Fluid Odor: Normal Datetime: 09/01/2023 17:35 Monitor Interventions for FHR: Ultrasound Adjusted
== END 2023-10-10 21:15 | disposition home or self-care (01) | DRG 806 ==
LOC: WFO 11:15 → FBP 11:17 → WFO 12:09 → FBP 12:10
PROVIDERS: ADMIT Nurse Practitioner Obstetrics & Gynecology; ATTEND Nurse Practitioner Obstetrics & Gynecology
PROC: 10E0XZZ Delivery of Products of Conception, External Approach (ICD-10-PCS; principal; 2023-10-09)
DX: O99.214 Obesity complicating childbirth (principal); O36.0930 Maternal care for other rhesus isoimmunization, third trimester, not applicable or unspecified; Z37.0 Single live birth; O69.81X0 Labor and delivery complicated by cord around neck, without compression, not applicable or unspecified; E66.01 Morbid (severe) obesity due to excess calories; Z3A.38 38 weeks gestation of pregnancy
CPT/HCPCS: 59025; 59409; 83033; 84112; 85025; 86850; 86870; 86880; 86900; 86901; 99215; A9270; J7120